=== PATIENT | female | born 1945 | race Caucasian/White ===

== ENCOUNTER → 2016-09-19 | Outpatient (CLI) | payer BC ==
[2016-09-19 17:37] LABS: BASO % 0.7 %; BASO ABS # 0.06 K/uL (0-0.2); COMPLETE YES; EOS % 3.6 %; HEMATOCRIT 40.7 % (37-47); IG% 0.1 %; LYMPH % 29.1 %; LYMPH ABS # 2.67 K/uL (1.2-3.4); MEAN CELL VOLUME 97.1 fL (80-100); MEAN CORPUSCULAR HEMOGLOBIN 32.5 pg (25-34); MEAN CORPUSCULAR HGB CONC 33.4 g/dl (32-36); MEAN PLATELET VOLUME 11.7 fL (7.4-10.4); MONO % 10.3 %; NEUT % 56.2 %; PLATELET COUNT 359 K/uL (130-400); RED BLOOD COUNT 4.19 M/uL (4.2-5.4); WHITE BLOOD COUNT 9.17 K/uL (4.8-10.8)
[2016-09-19 17:50] LABS: ALT/SGPT 28 U/L (12-78); AST/SGOT 23 U/L (15-37); BLOOD UREA NITROGEN 15 mg/dl (7-18); BUN/CREATININE RATIO 15.3 (10-20); CALCIUM 9.6 mg/dl (8.5-10.1); CARBON DIOXIDE 29 mmol/L (21-32); CHLORIDE 107 mmol/L (98-107); GLUCOSE 88 mg/dl (70-99); POTASSIUM 4.2 mmol/L (3.5-5.1); SODIUM 141 mmol/L (136-145)
[2016-09-19 18:01] LABS: ALB/GLOB RATIO 0.9 (0.9-2); ALKALINE PHOSPHATASE 61 U/L (45-117); CHOLESTEROL 189 mg/dl (0-200); CHOLESTEROL/HDL RATIO 2.7; HDL CHOLESTEROL 71 mg/dl; LDL CHOLESTEROL CALCULATED 89 mg/dl; TRIGLYCERIDES 147 mg/dl (0-150); VERY LOW DENSITY LIPOPROT CALC 29 mg/dl
[2016-09-20 07:24] LABS: ESTIMATED AVERAGE GLUCOSE 117 mg/dl; HA1C FLAG Normal (Normal)
--- NOTE | 2016-09-25 06:31 | CODING QUERY MEDICAL NECESSITY ---
CQSUPPORTING DIAGNOSIS NEEDED A supporting diagnosis is required for the test/procedure performed on this patient in order for us to be reimbursed by the patient's insurance. Please provide a supporting diagnosis for the following test/procedure listed below next to the test name along with your signature. *If there is no additional diagnosis for this patient that would support the following test/procedure please document that below next to the test/procedure. Test(s)/Procedure(s) that require a supporting diagnosis: DOS 09/19/16 COMPLETE BLOOD COUNT GLYCATED HEMOGLOBIN TEST THYROID TEST Provider Signature: Date: Thank you [facility] Once completed, please kindly fax back to [phone] For questions please call [phone]
== END | disposition home or self-care (01) ==
LOC: C.LABPBG 11:18
PROVIDERS: ATTEND Neuromusculoskeletal Medicine & OMM
DX: Z00.00 Encounter for general adult medical examination without abnormal findings (principal); R73.09 Other abnormal glucose; E78.5 Hyperlipidemia, unspecified; K21.9 Gastro-esophageal reflux disease without esophagitis

== ENCOUNTER → 2017-09-25 | Outpatient (CLI) | payer BC ==
[2017-09-25 16:59] LABS: HEMATOCRIT 35.6 % (37-47); HEMOGLOBIN 11.6 g/dL (12.0-16.0); MEAN CORPUSCULAR HEMOGLOBIN 31.3 pg (25-34); MEAN CORPUSCULAR HGB CONC 32.6 g/dl (32-36); MEAN PLATELET VOLUME 11.6 fL (7.4-10.4); PLATELET COUNT 285 K/uL (130-400); WHITE BLOOD COUNT 7.49 K/uL (4.8-10.8)
[2017-09-25 17:17] LABS: ALBUMIN 3.2 gm/dl (3.4-5.0); ALKALINE PHOSPHATASE 59 U/L (45-117); ALT/SGPT 21 U/L (12-78); AST/SGOT 24 U/L (15-37); BLOOD UREA NITROGEN 11 mg/dl (7-18); CARBON DIOXIDE 24 mmol/L (21-32); CHOLESTEROL 146 mg/dl (0-200); CREATININE 1.03 mg/dl (0.60-1.20); GLUCOSE 82 mg/dl (70-99); LDL CHOLESTEROL CALCULATED 60 mg/dl; SODIUM 141 mmol/L (136-145); TOTAL PROTEIN 6.8 gm/dl (6.4-8.2)
[2017-09-26 06:38] LABS: HEMOGLOBIN A1C 5.8 % (4.5-5.6)
== END | disposition home or self-care (01) ==
LOC: C.LABPBG 14:52
PROVIDERS: ATTEND Family Medicine
DX: E78.5 Hyperlipidemia, unspecified (principal); K21.9 Gastro-esophageal reflux disease without esophagitis; R73.09 Other abnormal glucose

== ENCOUNTER → 2017-10-06 | Outpatient (CLI) | payer BC ==
[2017-10-06 12:59] LABS: BASO % 1.4 %; BASO ABS # 0.11 K/uL (0-0.2); EOS % 3.1 %; EOS ABS # 0.24 K/uL (0-0.5); HEMOGLOBIN 13.9 g/dL (12.0-16.0); IG# 0.01 K/uL (0.00-0.02); LYMPH % 37.1 %; LYMPH ABS # 2.88 K/uL (1.2-3.4); MEAN CELL VOLUME 95.5 fL (80-100); MEAN CORPUSCULAR HEMOGLOBIN 31.6 pg (25-34); MEAN CORPUSCULAR HGB CONC 33.1 g/dl (32-36); MEAN PLATELET VOLUME 11.7 fL (7.4-10.4); MONO % 9.1 %; MONO ABS # 0.71 K/uL (0.11-0.59); NEUT % 49.2 %; NEUT ABS # 3.82 K/uL (1.4-6.5); PLATELET COUNT 369 K/uL (130-400); RED CELL DISTRIBUTION WIDTH CV 13.6 % (11.5-14.5); RED CELL DISTRIBUTION WIDTH SD 47.3 fL (36.4-46.3); RETIC COUNT % 1.5 % (0.5-2.0); WHITE BLOOD COUNT 7.77 K/uL (4.8-10.8)
== END | disposition home or self-care (01) ==
LOC: C.LABPBG 10:26
PROVIDERS: ATTEND Family Medicine
DX: D64.9 Anemia, unspecified (principal)

== ENCOUNTER 2022-09-30 10:40 | Inpatient (IN) ==
[2022-09-30] MEDS ORDERED: KETOROLAC TROMETHAMINE 15 MG/ML VIAL IV STA (12:21)
[2022-09-30] MEDS ORDERED: methylPREDNISolone 125 MG/2 ML VIAL IV STA (12:21)
[2022-09-30] MEDS ORDERED: ALBUT/IPRATROP 3MG/0.5MG NEB 3 ML VIAL NEB STA (12:21)
[2022-09-30 12:25] LABS: Basophils % (auto) 0.5 %; Eosinophils # (auto) 0.34 K/uL (0-0.50); Eosinophils % (auto) 1.8 %; Hemoglobin 9.2 g/dl (12.0-16.0); Immature Granulocytes # (auto) 0.08 K/uL (0.01-0.20); Immature Granulocytes % (auto) 0.4 %; Lymphocytes # (auto) 3.27 K/uL (1.2-3.4); Lymphocytes % (auto) 17.2 %; Mean Corpuscular Hemoglobin 27.6 pg (25.0-34.0); Mean Corpuscular Hgb Conc 31.7 g/dL (32.0-36.0); Mean Corpuscular Volume 87.1 fL (80.0-100.0); Neutrophils % (auto) 70.1 %; Platelet Count 472 K/uL (130-400); RDW Coefficient of Variation 14.5 % (11.5-14.5); RDW Standard Deviation 46.2 fL (36.4-46.3); Red Blood Count 3.33 M/uL (4.20-5.40); White Blood Count 18.99 K/ul (4.8-10.8)
[2022-09-30 12:49] LABS: Albumin Level 3.7 gm/dl (3.4-5.0); BUN Creatinine Ratio 14.7 (10-20); Bilirubin,Total 0.4 mg/dl (0.2-1.0); Calcium 8.8 mg/dl (8.6-10.3); Creatinine Clr Calc Pharmacy 45.7 ml/min; Est GFR (African American) 60.6 ml/min; Est GFR (Non-African American) 52.3 ml/min; Globulin 3.6 gm/dl (2.5-4.0); Potassium 4.5 mmol/L (3.5-5.1); Total Protein 7.3 gm/dl (6.0-8.3)
[2022-09-30 12:50] LABS: Base Excess VBG 0.3 mEq/L; HCO3 VBG 25 mmol/L; Oxygen Saturation VBG < 60.0 %; PCO2 VBG 42 mmHg (38-50); PO2 VBG 38 mmHg; pH VBG 7.39 (7.36-7.41)
[2022-09-30] MEDS ORDERED: OPTIRAY 320 100ml IV ONE (14:06)
--- NOTE | 2022-09-30 14:25 | CT Scan Report ---
ABDOMEN AND PELVIS CT WITH IV CONTRAST CT DOSE: 901.84 mGy.cm HISTORY: Acute left lower quadrant abdominal pain llq pain TECHNIQUE: Multiaxial CT images of the abdomen and pelvis were performed following the IV administrat ion of 93 cc of Optiray, A dose lowering technique was utilized adhering to the principles of ALARA. COMPARISON STUDY: 05/29/2021 FINDINGS: Moderate basilar plugging. Linear consolidative with bibasilar groundglass densities. No pn eumatosis or pneumoperitoneum. Unremarkable spleen, pancreas and adrenal glands. Liver is within norm al limits. Patency of the hepatic and portal veins. Distended gallbladder with cholelithiasis. No gal lbladder wall thickening or pericholecystic fluid. No biliary ductal dilation. Mild nonspecific bilateral perinephric stranding. No hydronephrosis. Mild urinary bladder wall thicke humza. Hysterectomy. Atherosclerosis of the aorta. No pathologically enlarged lymph nodes identified. Moderate-sized hiatal hernia. No small bowel junction. Colonic diverticulosis. Circumferential wall t hickening of the distal descending colon, descending sigmoid junction and proximal to mid sigmoid wit h adjacent inflammatory stranding. No inflamed diverticulum identified. Moderate fecal retention. The appendix is reportedly surgically absent. Unremarkable soft tissues. No acute fracture. Unchanged sc lerosis of the left iliac bone adjacent to the SI joint. IMPRESSION: 1. Wall thickening of the distal descending colon and proximal sigmoid with adjacent inflammatory str anding suggestive of a nonspecific colitis versus acute diverticulitis. Follow-up colonoscopy after t reatment course recommended to exclude the less likely possibility of an underlying mucosal lesion. 2. No pneumoperitoneum, fluid collection or obstruction. 3. Cholelithiasis. 4. Mild bibasilar opacities suggestive of atelectasis versus pneumonitis. 5. Hiatal hernia. ACT 112: Negative or not required by law. The above report was generated using voice recognition software. It may contain grammatical, syntax o r spelling errors. Electronically signed by: Chuy Awan M.D. 09/30/2022 2:24 PM
[2022-09-30] MEDS ORDERED: CIPROFLOXACIN / D5W 400 MG/200 ML BAG IV STA (14:37)
[2022-09-30] MEDS ORDERED: metroNIDAZOLE 500 MG/100 ML BAG IV STA (14:37)
--- NOTE | 2022-09-30 14:45 | Emergency Department Note ---
History of Present Illness General Chief Complaint: Referred by Doctor Stated Complaint: ABD PAIN, SOB, UNABLE TO PEE Time Seen by Provider: 09/30/22 12:13 History of Present Illness Provider Complaint: abdominal pain Onset (ago): 3 week(s) Pain Consistency: intermittent Location: LLQ Severity: moderate Maximum Pain Intensity: 6 Current Pain Intensity: 6 Quality: + stabbing and + sharp Relieved By: + nothing Exacerbated By: + nothing Context: + recent antibiotic use (Started on Augmentin yesterday for diverticulitis. 3 weeks ago was on Augmentin for diverticulitis also) and + history of similar episodes (Feels like previous episodes of diverticulitis as well as his previous small bowel obstructions); no foreign travel, no possible food poisoning, no sick contacts, no recent surgery/procedure or no recent injury Associated Symptoms: + nausea, + constipation and + breathing difficulty (Increased shortness of breath and wheezing); no vomiting, no fever, no chills, no dysuria, no hematemesis, no hematochezia, no melena and no hematuria Home Medications Medication Instructions Recorded Confirmed Type aspirin 81 mg tablet,delayed 81 mg PO DAILY #30 tabs 07/20/18 09/30/22 Rx release (Adult Low Dose Aspirin) fish oil-dha-epa 1,200 mg-144 1 cap PO DAILY #30 caps 07/20/18 09/30/22 Rx mg-216 mg capsule multivitamin 1 tab PO DAILY #30 tabs 07/20/18 09/30/22 Rx calcium carbonate 600 mg-vitamin 2 tab PO DAILY 07/20/20 09/30/22 History D3 1,000 unit-vitamin K2 90 mcg tab metoprolol succinate 50 mg 50 mg PO DAILY #90 tabs 04/03/22 09/30/22 Rx tablet,extended release 24 hr omeprazole 20 mg capsule,delayed 20 mg PO DAILY #90 caps 04/23/22 09/30/22 Rx release paroxetine HCl 40 mg tablet 40 mg PO DAILY #90 tabs 04/23/22 09/30/22 Rx alendronate 70 mg tablet (Fosamax) 70 mg PO .WEEKLY #12 tabs 04/25/22 09/30/22 Rx doxepin 25 mg capsule 50 mg PO HS #90 caps 07/15/22 09/30/22 Rx rosuvastatin 10 mg tablet 10 mg PO DAILY #90 tabs 07/23/22 09/30/22 Rx montelukast 10 mg tablet 10 mg PO DAILY #90 tabs 09/12/22 09/30/22 Rx ondansetron 4 mg disintegrating 4 mg PO Q6H PRN Nausea 09/19/22 09/30/22 History tablet albuterol sulfate 90 mcg/actuation 2 puff inhalation Q4H PRN 09/30/22 09/30/22 Rx aerosol inhaler shortness of breath or wheezing #8.5 grams amoxicillin 875 mg-potassium 1 tab PO BID 09/30/22 09/30/22 History clavulanate 125 mg tablet hydrocodone 5 mg-acetaminophen 325 1 tab PO Q8H PRN pain 09/30/22 09/30/22 History mg tablet umeclidinium 62.5 mcg-vilanterol 1 inh inhalation QAM 09/30/22 09/30/22 History 25 mcg/actuation powdr for inhalation (Anoro Ellipta) Allergies Allergy/AdvReac Type Severity Reaction Status Date / Time No Known Drug Allergies Allergy Verified 09/30/22 09:24 Past Med/Surg History Medical History Anemia Aortic stenosis COPD (chronic obstructive pulmonary disease) Depression with anxiety Frequent UTI GERD without esophagitis H/O Graves' disease H/O malignant neoplasm of uterine body H/O nicotine dependence H/O small bowel obstruction Hyperlipidemia Hypoxia Obstructive sleep apnea Prediabetes Sensorineural hearing loss of both ears Tinnitus, bilateral Intermittent Surgical History H/O cataract extraction (04/2019) both eyes H/O total hysterectomy secondary to uterine cancer History of appendectomy Hx of tonsillectomy S/P exploratory laparotomy (10/19/18) w/ cecopexy, [place] d/t 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 S/P exploratory laparotomy w/ [place] d/t recurrent SBO Family History Sister , Age 78 from heart disease Lung cancer Myocardial infarction Coronary heart disease COPD (chronic obstructive pulmonary disease) Mother , Stroke Stroke Father Stroke Brother Lung cancer Denies family history of Ovarian cancer Prostate cancer Breast cancer Colorectal cancer Social History Smoking Status: Never smoker Tobacco Type: Cigarettes Age Started Using Tobacco: 19; Age Quit Using Tobacco: 71; packs per day: 0.5; Second Hand Exposure: No; Do You Dip or Chew Tobacco: No; Hx Alcohol Use: No Hx Substance Use: No Preferred Language: [place] Visual Impairment: No Limitations Hearing Ability: Use of Hearing Aid Name Plate Stamper Required: No Beliefs That Will Affect Care: None marital status: Single Current Living Situation: Other Current Living Situation Comment: Niece lives with her. current occupational status: retired Feels Safe at Home: Yes Childhood Exposure to Second-Hand Smoke: No Diet: regular Diet Comment: regular caffeine: Yes during the past year weight has: remained stable Dental Care, Regularly: Yes Physical Activity Frequency: 3-4 Times per Week Seatbelt Use: always Sunscreen Use: No Physical Exam Vital Signs: Vital Signs - 24 hr 09/30/22 11:01 09/30/22 12:26 Temperature 36.8 C Temperature Source Oral Pulse Rate 94 H 86 Respiratory Rate 28 H Blood Pressure 123/60 Blood Pressure Indira n 81 Blood Pressure Pos ition Sitting Pulse Oximetry 93 Oxygen Delivery Me thod Room Air Sepsis Recent Feve r Within 48 Hours No Sepsis New/Unexpla ined Change in Men hal Status No Sepsis Action Take n by Nursing No Action Required Physical Exam: Physical Exam GENERAL: She is oriented to person, place, and time. She appears well-developed and well-nourished. She does not appear distressed. HENT: Exam performed. -Head: Normocephalic and atraumatic. -Right Ear: External ear normal. No mastoid erythema -Left Ear: External ear normal. No mastoid erythema -Mouth/Throat: The oropharynx is clear and moist. No trismus in the jaw. No dental abscesses or uvula swelling. No oropharyngeal exudate or tonsillar abscesses. EYES: Conjunctivae and EOM are normal.Right eye exhibits no discharge. Left eye exhibits no discharge. No scleral icterus. NECK: Normal range of motion. Neck supple. No JVD present. No tracheal deviation and normal range of motion present. CV: Normal rate, regular rhythm, normal heart sounds and intact distal pulses. There is no peripheral edema. Palpable radial pulses bue. PULM/CHEST: Expiratory wheezes bilaterally. -Chest Wall: She exhibits no tenderness. ABD: The abdomen is soft. Bowel sounds are normal. She has no distension. No mass is present. There is tenderness to palpation of the left lower quadrant. There is no rebound, no guarding, no Ryan's sign and no tenderness at McBurney's point. Rovsig negative MUSC/SKEL: Normal range of motion. There is no peripheral edema, tenderness or deformity. NEURO: Motor and sensation grossly intact. SKIN: Skin is warm and dry. She is not diaphoretic. PSYCH: She has a normal mood and affect. Behavior is normal. Judgment and thought content normal. Course Course 1213: The patient was evaluated in room A12. A complete history and physical exam was performed Cardiac monitoring: An order was placed for continuous cardiac monitoring. The monitor shows a rate of 80 with sinus rhythm interpreted by de 1444: Vital signs stable. Labs show leukocytosis of 18.99. Lactic acid within normal limits. CT of the abdomen pelvis shows colitis versus diverticulitis no bowel obstruction. Given the patient has failed outpatient antibiotics over the last 3 weeks patient will be treated with IV Cipro and Flagyl [facility] team [facility]. Administered Medications Discontinued Medications Albuterol (Albut/Ipratrop 3mg/0.5mg Neb 3 Ml Vial) 3 ml NEB NOW STA; Protocol Stop: 09/30/22 12:22 Last Admin: 09/30/22 12:35 Dose: 3 ml Documented By: GWENDOLYN Ciprofloxacin (Cipro / D5w) 400 mg in 200 mls @ 100 mls/hr IV NOW STA; Protocol Stop: 09/30/22 16:36 Last Admin: 09/30/22 15:23 Dose: 100 mls/hr Documented By: GWENDOLYN Metronidazole (Flagyl) 500 mg in 100 mls @ 100 mls/hr IV NOW STA Stop: 09/30/22 15:36 Last Admin: 09/30/22 15:24 Dose: 100 mls/hr Documented By: GWENDOLYN Pantoprazole Sodium 40 mg/ (Syringe) 10 mls @ 5 mls/min IV NOW ONE Stop: 09/30/22 15:31 Last Admin: 09/30/22 16:45 Dose: 5 mls/min Documented By: ACC Lactated Ringer's (Lr) 500 mls @ 999 mls/hr IV .Q31M ONE Stop: 09/30/22 16:34 Last Admin: 09/30/22 16:45 Dose: 999 mls/hr Documented By: BESSIE Ioversol (Optiray 320 100ml) 93 ml IV ONCE ONE Stop: 09/30/22 14:07 Last Admin: 09/30/22 14:06 Dose: 93 ml Documented By: GATO Ketorolac Tromethamine (Ketorolac Tromethamine 15 Mg/Ml Vial) 15 mg IV NOW STA Stop: 09/30/22 12:22 Last Admin: 09/30/22 12:35 Dose: 15 mg Documented By: GWENDOLYN Methylprednisolone (Methylprednisolone 125 Mg/2 Ml Vial) 125 mg IV NOW STA Stop: 09/30/22 12:22 Last Admin: 09/30/22 12:35 Dose: 125 mg Documented By: GWENDOLYN Medical Decision Making Laboratory Data Attestation: I reviewed the patient's lab results. 09/30/22 12:00 09/30/22 12:00 Lab Results 09/30/22 09/30/22 09/30/22 Range/Units 12:00 12:00 12:43 WBC 18.99 H (4.8-10.8) K/ul RBC 3.33 L (4.20-5.40) M/uL Hgb 9.2 L (12.0-16.0) g/dl Hct 29.0 L (37.0-47.0) % MCV 87.1 (80.0-100.0) fL MCH 27.6 (25.0-34.0) pg MCHC 31.7 L (32.0-36.0) g/dL RDW Std Deviation 46.2 (36.4-46.3) fL RDW Coeff of Humza 14.5 (11.5-14.5) % Plt Count 472 H (130-400) K/uL MPV 11.0 (9.4-12.4) fL Immature Gran % (Auto) 0.4 % Neut % (Auto) 70.1 % Lymph % (Auto) 17.2 % [place] % (Auto) 10.0 % Eos % (Auto) 1.8 % Baso % (Auto) 0.5 % Neut # (Auto) 13.30 H (1.40-6.50) K/uL Lymph # (Auto) 3.27 (1.2-3.4) K/uL [place] # (Auto) 1.90 H (0.11-0.59) K/uL Eos # (Auto) 0.34 (0-0.50) K/uL Baso # (Auto) 0.10 (0-0.2) K/uL Immature Gran # (Auto) 0.08 (0.01-0.20) K/uL VBG pH (7.36-7.41) VBG pCO2 (38-50) mmHg VBG pO2 mmHg VBG HCO3 mmol/L VBG O2 Saturation % VBG Base Excess mEq/L Sodium 135 L (136-145) mmol/L Potassium 4.5 (3.5-5.1) mmol/L Chloride 104 (98-107) mmol/L Carbon Dioxide 25 (21-32) mmol/L Anion Gap 6 (3-11) BUN 15 (6-23) mg/dl Creatinine 1.02 (0.6-1.2) mg/dl Est Cr Clr Drug Dosing 45.7 ml/min Est GFR ( Amer) 60.6 ml/min Est GFR (Non-Af Amer) 52.3 ml/min BUN/Creatinine Ratio 14.7 (10-20) Glucose 94 (70-99(Fasting)) mg/dl Lactate 0.8 (0.4-2.0) mmol/L Calcium 8.8 (8.6-10.3) mg/dl Total Bilirubin 0.4 (0.2-1.0) mg/dl AST 17 (13-39) U/L ALT 8 (7-52) U/L Alkaline Phosphatase 71 (34-104) U/L Total Protein 7.3 (6.0-8.3) gm/dl Albumin 3.7 (3.4-5.0) gm/dl Globulin 3.6 (2.5-4.0) gm/dl Albumin/Globulin Ratio 1.0 (0.9-2) Lipase 9 L (11-82) U/L Urine Color Urine Appearance (Clear) Urine pH (4.5-7.5) Ur Specific [place] (1.000-1.030) Urine Protein (Negative) Urine Glucose (UA) (Negative) Urine Ketones (Negative) Urine Blood (Negative) Urine Nitrite (Negative) Urine Bilirubin (Negative) Urine Urobilinogen (Negative) Ur Leukocyte Esterase (Negative) Urine WBC (Auto) (0-5) /hpf Urine RBC (Auto) (0-4) /hpf U Hyaline Cast (Auto) (0-5) /lpf U Epithel Cells (Auto) (0-5) /lpf Urine Bacteria (Auto) (Negative) 09/30/22 09/30/22 Range/Units 12:44 14:21 WBC (4.8-10.8) K/ul RBC (4.20-5.40) M/uL Hgb (12.0-16.0) g/dl Hct (37.0-47.0) % MCV (80.0-100.0) fL MCH (25.0-34.0) pg MCHC (32.0-36.0) g/dL RDW Std Deviation (36.4-46.3) fL RDW Coeff of Humza (11.5-14.5) % Plt Count (130-400) K/uL MPV (9.4-12.4) fL Immature Gran % (Auto) % Neut % (Auto) % Lymph % (Auto) % [place] % (Auto) % Eos % (Auto) % Baso % (Auto) % Neut # (Auto) (1.40-6.50) K/uL Lymph # (Auto) (1.2-3.4) K/uL [place] # (Auto) (0.11-0.59) K/uL Eos # (Auto) (0-0.50) K/uL Baso # (Auto) (0-0.2) K/uL Immature Gran # (Auto) (0.01-0.20) K/uL VBG pH 7.39 (7.36-7.41) VBG pCO2 42 (38-50) mmHg VBG pO2 38 mmHg VBG HCO3 25 mmol/L VBG O2 Saturation < 60.0 % VBG Base Excess 0.3 mEq/L Sodium (136-145) mmol/L Potassium (3.5-5.1) mmol/L Chloride (98-107) mmol/L Carbon Dioxide (21-32) mmol/L Anion Gap (3-11) BUN (6-23) mg/dl Creatinine (0.6-1.2) mg/dl Est Cr Clr Drug Dosing ml/min Est GFR ( Amer) ml/min Est GFR (Non-Af Amer) ml/min BUN/Creatinine Ratio (10-20) Glucose (70-99(Fasting)) mg/dl Lactate (0.4-2.0) mmol/L Calcium (8.6-10.3) mg/dl Total Bilirubin (0.2-1.0) mg/dl AST (13-39) U/L ALT (7-52) U/L Alkaline Phosphatase (34-104) U/L Total Protein (6.0-8.3) gm/dl Albumin (3.4-5.0) gm/dl Globulin (2.5-4.0) gm/dl Albumin/Globulin Ratio (0.9-2) Lipase (11-82) U/L Urine Color Dark Yellow Urine Appearance Clear (Clear) Urine pH 5.0 (4.5-7.5) Ur Specific [place] > 1.045 H (1.000-1.030) Urine Protein 1+ H (Negative) Urine Glucose (UA) Negative (Negative) Urine Ketones Trace H (Negative) Urine Blood Negative (Negative) Urine Nitrite Negative (Negative) Urine Bilirubin Negative (Negative) Urine Urobilinogen Negative (Negative) Ur Leukocyte Esterase Trace H (Negative) Urine WBC (Auto) 5-10 H (0-5) /hpf Urine RBC (Auto) 0-4 (0-4) /hpf U Hyaline Cast (Auto) 1-5 (0-5) /lpf U Epithel Cells (Auto) >30 H (0-5) /lpf Urine Bacteria (Auto) Negative (Negative) Imaging Data Radiologist's Impression: Abdomen/Pelvis CT 09/30/22 12:[address] WITH IV CONTRAST CT DOSE: 901.84 mGy.cm HISTORY: Acute left lower quadrant abdominal pain llq pain TECHNIQUE: Multiaxial CT images of the abdomen and pelvis were performed following the IV administration of 93 cc of Optiray, A dose lowering technique was utilized adhering to the principles of ALARA. COMPARISON STUDY: 05/29/2021 FINDINGS: Moderate basilar plugging. Linear consolidative with bibasilar groundglass densities. No pneumatosis or pneumoperitoneum. Unremarkable spleen, pancreas and adrenal glands. Liver is within normal limits. Patency of the hepatic and portal veins. Distended gallbladder with cholelithiasis. No gallbladder wall thickening or pericholecystic fluid. No biliary ductal dilation. Mild nonspecific bilateral perinephric stranding. No hydronephrosis. Mild urinary bladder wall thickening. Hysterectomy. Atherosclerosis of the aorta. No pathologically enlarged lymph nodes identified. Moderate-sized hiatal hernia. No small bowel junction. Colonic diverticulosis. Circumferential wall thickening of the distal descending colon, descending sigmoid junction and proximal to mid sigmoid with adjacent inflammatory stranding. No inflamed diverticulum identified. Moderate fecal retention. The appendix is reportedly surgically absent. Unremarkable soft tissues. No acute fracture. Unchanged sclerosis of the left iliac bone adjacent to the SI joint. IMPRESSION: 1. Wall thickening of the distal descending colon and proximal sigmoid with adjacent inflammatory stranding suggestive of a nonspecific colitis versus acute diverticulitis. Follow-up colonoscopy after treatment course recommended to exclude the less likely possibility of an underlying mucosal lesion. 2. No pneumoperitoneum, fluid collection or obstruction. 3. Cholelithiasis. 4. Mild bibasilar opacities suggestive of atelectasis versus pneumonitis. 5. Hiatal hernia. ACT 112: Negative or not required by law. The above report was generated using voice recognition software. It may contain grammatical, syntax or spelling errors. Electronically signed by: Chuy Awan M.D. 09/30/2022 2:24 PM [facility] Narrative 1213: The patient was evaluated in room A12. A complete history and physical exam was performed Cardiac monitoring: An order was placed for continuous cardiac monitoring. The monitor shows a rate of 80 with sinus rhythm interpreted by de 1444: Vital signs stable. Labs show leukocytosis of 18.99. Lactic acid within normal limits. CT of the abdomen pelvis shows colitis versus diverticulitis no bowel obstruction. Given the patient has failed outpatient antibiotics over the last 3 weeks patient will be treated with IV Cipro and Flagyl [facility] team notified. Impression & Plan Diverticulitis Discharge Plan Visit Data Chief Complaint: Referred by Doctor Stated Complaint: ABD PAIN, SOB, UNABLE TO PEE ED Provider: Miquel Parnell Discharge Problem: Diverticulitis Patient Disposition: Admitted As Inpatient
--- NOTE | 2022-09-30 15:08 | History & Physical Report ---
Date of Service September 30, 2022 Assessment & Plan (1) Diverticulitis: Plan: Ciprofloxacin + metronidazole given in ER, will switch to Zosyn for better pseudomonas coverage but suspect failure more down to diet than problem with antibiotics NPO + IV fluids (probable severe aortic stenosis and already compromised respiratory status therefore low tolerance to slow IV fluids or stop) Follow up blood cultures although she does not appear septic despite technically meeting SIRS criteria with her HR and WBC. Will need follow up colonoscopy as outpatient in 4-6 weeks (2) Acute respiratory failure with hypoxia: Plan: Baseline on room air although she has oxygen prescribed at home she reports usually O2 sats 91-93% Required oxygen since current diagnosis of diverticulitis Treat as COPD exacerbation as below Aim O2 sats 88-92% (3) COPD exacerbation: Plan: Increased sputum production and shortness of breath Solu-medrol 125mg IV given in the ER. Will initially trial without further steroids as the diverticulitis is her main issue and hopefully she will improve just with Spiriva INH, budesonide/formoterol nebs BID and duonebs QID. If worsening respiratory status consider heart failure as possible cause in addition Azithromycin 500mg IV for three days Sputum culture (4) Aortic stenosis: Plan: Not well visualized on last echo in July. At least moderate, probably severe. Possibly contributing towards shortness of breath chronically but doubtful acute component in absence of over heart failure. Monitor for closely for worsening respiratory status while on IV fluids. (5) Obstructive sleep apnea: Plan: CPAP HS (pt reports settings of 4-12cm H20) (6) GERD without esophagitis: Plan: Switch omeprazole to pantoprazole 40mg IV daily (7) Depression with anxiety: Plan: Continue paroxetine and doxepin Plan VTE Prophylaxis - Lovenox 40mg SQ daily Diet - NPO except meds Disposition - observation status to med/surg Admission and Anticipated Discharge Date Admission Date: September 30, 2022 History of Present Illness Chief Complaint: Abdominal pain, shortness of breath Primary Care Provider: DO Najma Rosales is a 77 year old female who presents to the ER with abdominal pain. She notes no history of diverticulitis prior to recent events however she does have a significant history of bowel obstructions. 1 week ago she was having left lower quadrant pain and went to [place] ER. She was diagnosed with acute diverticulitis and started on Augmentin 500/125 for 10 days on September 19. She was advised to go down to a soft diet but report she was never really eating that much as she didn't feel like it. No diarrhea, melena or hematochezia. The pain started getting worse yesterday therefore returned to [place] ER and Augmentin was increased to 875/125 for a further 7 days. She followed up with her PCP today and given more short of breath with abdominal pain not improving she was recommended to come to the ER for further evaluation. She also notes not passing much urine but no other urinary complaints and she puts this down to her reduced oral intake. Her shortness of breath has been over the same period. She has COPD and is prescribed oxygen at home but reports her usual O2 sats 91-93% on room air so she doesn't normally use it. However for the last week with the above illness she has been using her 2LPM O2. She has been compliant with her usual inhalers. Quit smoking 7 years ago. No chest pain. She wears CPAP at night for LESLI. Allergies Allergy/AdvReac Type Severity Reaction Status Date / Time No Known Drug Allergies Allergy Verified 09/30/22 09:24 Home Medications Medication Instructions Recorded Confirmed Type aspirin 81 mg tablet,delayed 81 mg PO DAILY #30 tabs 07/20/18 09/30/22 Rx release (Adult Low Dose Aspirin) fish oil-dha-epa 1,200 mg-144 1 cap PO DAILY #30 caps 07/20/18 09/30/22 Rx mg-216 mg capsule multivitamin 1 tab PO DAILY #30 tabs 07/20/18 09/30/22 Rx calcium carbonate 600 mg-vitamin 2 tab PO DAILY 07/20/20 09/30/22 History D3 1,000 unit-vitamin K2 90 mcg tab metoprolol succinate 50 mg 50 mg PO DAILY #90 tabs 04/03/22 09/30/22 Rx tablet,extended release 24 hr omeprazole 20 mg capsule,delayed 20 mg PO DAILY #90 caps 04/23/22 09/30/22 Rx release paroxetine HCl 40 mg tablet 40 mg PO DAILY #90 tabs 04/23/22 09/30/22 Rx alendronate 70 mg tablet (Fosamax) 70 mg PO .WEEKLY #12 tabs 04/25/22 09/30/22 Rx doxepin 25 mg capsule 50 mg PO HS #90 caps 07/15/22 09/30/22 Rx rosuvastatin 10 mg tablet 10 mg PO DAILY #90 tabs 07/23/22 09/30/22 Rx montelukast 10 mg tablet 10 mg PO DAILY #90 tabs 09/12/22 09/30/22 Rx ondansetron 4 mg disintegrating 4 mg PO Q6H PRN Nausea 09/19/22 09/30/22 History tablet albuterol sulfate 90 mcg/actuation 2 puff inhalation Q4H PRN 09/30/22 09/30/22 Rx aerosol inhaler shortness of breath or wheezing #8.5 grams amoxicillin 875 mg-potassium 1 tab PO BID 09/30/22 09/30/22 History clavulanate 125 mg tablet hydrocodone 5 mg-acetaminophen 325 1 tab PO Q8H PRN pain 09/30/22 09/30/22 History mg tablet umeclidinium 62.5 mcg-vilanterol 1 inh inhalation QAM 09/30/22 09/30/22 History 25 mcg/actuation powdr for inhalation (Anoro Ellipta) Past Med/Surg History Medical History Anemia Aortic stenosis COPD (chronic obstructive pulmonary disease) Depression with anxiety Frequent UTI GERD without esophagitis H/O Graves' disease H/O malignant neoplasm of uterine body H/O nicotine dependence H/O small bowel obstruction Hyperlipidemia Hypoxia Obstructive sleep apnea Prediabetes Sensorineural hearing loss of both ears Tinnitus, bilateral Intermittent Surgical History H/O cataract extraction (04/2019) both eyes H/O total hysterectomy secondary to uterine cancer History of appendectomy Hx of tonsillectomy S/P exploratory laparotomy (10/19/18) w/ cecopexy, [place] d/t 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 S/P exploratory laparotomy w/ [place] d/t recurrent SBO Family History Sister , Age 78 from heart disease Lung cancer Myocardial infarction Coronary heart disease COPD (chronic obstructive pulmonary disease) Mother , Stroke Stroke Father Stroke Brother Lung cancer Denies family history of Ovarian cancer Prostate cancer Breast cancer Colorectal cancer Social History Smoking Status: Former smoker Tobacco Type: Cigarettes Age Started Using Tobacco: 19; Age Quit Using Tobacco: 71; packs per day: 0.5; Second Hand Exposure: No; Do You Dip or Chew Tobacco: No; Hx Alcohol Use: No Hx Substance Use: No Preferred Language: Yi Communication Ability: Effective Visual Impairment: No Limitations Hearing Ability: Use of Hearing Aid Coding Manager Required: No Beliefs That Will Affect Care: None marital status: Single Current Living Situation: Family Current Living Situation Comment: lies in own home, niece lives with her, 1st floor setup current occupational status: retired Other Information That Helps Us Care for You: No Feels Safe at Home: Yes Safety Concerns: Feels Safe At This Time Childhood Exposure to Second-Hand Smoke: No Diet: regular Diet Comment: regular caffeine: Yes during the past year weight has: remained stable Dental Care, Regularly: Yes Physical Activity Frequency: 3-4 Times per Week Seatbelt Use: always Sunscreen Use: No Assistive Devices: CPAP and Oxygen - Continuous Review of Systems Review of Systems: All systems reviewed & are unremarkable except as noted in HPI & below Physical Exam Constitutional: WD/WN, vitals as above Eyes: PERRL, conjunctivae normal, anicteric sclerae ENMT: external ear and nose normal, oropharynx normal Respiratory: + respiratory distress, + labored breathing, + uses accessory muscles and + prolonged expiratory phase Auscultation: + crackles (bibasal) and + wheezes (mild expiratory); breath sounds present, no diminished lung sounds, no rales and no rhonchi Cardiovascular: RRR, no murmur, no edema Gastrointestinal (Abdomen): Inspection/Auscultation: abdomen normal to inspection; abdomen not distended Percussion/Palpation: + abdomen tender (LLQ), + guarding and abdomen soft; abdomen not rigid Musculoskeletal: no cyanosis or clubbing, extremities motor strength 5/5 Skin: no rashes, warm and dry Neurologic: moves all extremities and awake; not confused Psychiatric: A+Ox3, euthymic affect Genitourinary: no CVA tenderness Results & Data Results & Data Vital Signs (Past 12 Hours) Vital Signs Temp Pulse Resp BP Pulse Ox O2 Del Method 09/30/22 12:26 86 09/30/22 11:01 36.8 C 94 H 28 H 123/60 93 Room Air Laboratory Results Abnormal lab results 09/30/22 09/30/22 Range/Units 12:00 12:00 WBC 18.99 H (4.8-10.8) K/ul RBC 3.33 L (4.20-5.40) M/uL Hgb 9.2 L (12.0-16.0) g/dl Hct 29.0 L (37.0-47.0) % MCHC 31.7 L (32.0-36.0) g/dL Plt Count 472 H (130-400) K/uL Neut # (Auto) 13.30 H (1.40-6.50) K/uL Morrison # (Auto) 1.90 H (0.11-0.59) K/uL Sodium 135 L (136-145) mmol/L Lipase 9 L (11-82) U/L Diagnostic Findings ABDOMEN AND PELVIS CT WITH IV CONTRAST CT DOSE: 901.84 mGy.cm HISTORY: Acute left lower quadrant abdominal pain llq pain TECHNIQUE: Multiaxial CT images of the abdomen and pelvis were performed following the IV administration of 93 cc of Optiray, A dose lowering technique was utilized adhering to the principles of ALARA. COMPARISON STUDY: 05/29/2021 FINDINGS: Moderate basilar plugging. Linear consolidative with bibasilar groundglass densities. No pneumatosis or pneumoperitoneum. Unremarkable spleen, pancreas and adrenal glands. Liver is within normal limits. Patency of the hepatic and portal veins. Distended gallbladder with cholelithiasis. No gallbladder wall thickening or pericholecystic fluid. No biliary ductal dilation. Mild nonspecific bilateral perinephric stranding. No hydronephrosis. Mild urinary bladder wall thickening. Hysterectomy. Atherosclerosis of the aorta. No pathologically enlarged lymph nodes identified. Moderate-sized hiatal hernia. No small bowel junction. Colonic diverticulosis. Circumferential wall thickening of the distal descending colon, descending sigmoid junction and proximal to mid sigmoid with adjacent inflammatory stranding. No inflamed diverticulum identified. Moderate fecal retention. The appendix is reportedly surgically absent. Unremarkable soft tissues. No acute fracture. Unchanged sclerosis of the left iliac bone adjacent to the SI joint. IMPRESSION: 1. Wall thickening of the distal descending colon and proximal sigmoid with adjacent inflammatory stranding suggestive of a nonspecific colitis versus acute diverticulitis. Follow-up colonoscopy after treatment course recommended to exclude the less likely possibility of an underlying mucosal lesion. 2. No pneumoperitoneum, fluid collection or obstruction. 3. Cholelithiasis. 4. Mild bibasilar opacities suggestive of atelectasis versus pneumonitis. 5. Hiatal hernia. Medications Administered ER Medications Given: Ciprofloxacin 400mg IV Metronidazole 500mg IV Solu-medrol 125mg IV Duoneb 3ml Toradol 15mg IV ECG Rate (beats per minute): 83 Rhythm: normal sinus Findings: no acute ischemic change Comparison ECG Date: no prior available Code Status & VTE Plan Code Status DNR/DNI VTE Prophylaxis Plan VTE Prophylaxis will be ordered: Yes PG Care Time/CCT Total # of Minutes Spent Total Time Spent with Patient: Total time spent is greater than 50% in coordination of care (as documented) at patient's floor/unit and/or counseling patient: Coding Level of Care Code 22779 INT INP/OBS CARE 3/75MIN Diagnoses Diverticulitis K57.92 Acute respiratory failure with hypoxia J96.01 COPD exacerbation J44.1 Aortic stenosis I35.0 Obstructive sleep apnea G47.33 GERD without esophagitis K21.9 Depression with anxiety F41.8
[2022-09-30 15:14] LABS: Appearance Urine Clear (Clear); Bacteria Urine Automated Negative (Negative); Bilirubin Urine Negative (Negative); Blood Urine Negative (Negative); Color Urine Dark Yellow; Epithelial Cell Urine Auto >30 /lpf (0-5); Glucose Urine UA Negative (Negative); Ketones Urine Trace (Negative); Leukocyte Esterase Urine Trace (Negative); Nitrite Urine Negative (Negative); Protein Urine 1+ (Negative); RBC Urine Automated 0-4 /hpf (0-4); Specific Gravity Urine > 1.045 (1.000-1.030); Urobilinogen Urine Negative (Negative)
[2022-09-30] MEDS ORDERED: PANTOprazole 40 MG in SYRINGE 0 ML IV ONE (15:30)
--- NOTE | 2022-09-30 16:01 | XRay Report ---
SINGLE VIEW CHEST CLINICAL HISTORY: Dyspnea. FINDINGS: An AP, portable, semierect chest radiograph is compared to study dated 02/06/2019 and corre lated with chest CT dated 07/23/2019. The examination is degraded by portable technique and apical toña dotic positioning. The cardiomediastinal silhouette is unremarkable noting atherosclerotic calcificat ion of the thoracic aorta. Emphysema and chronic interstitial thickening is similar to previous. Ther e is bibasilar scarring/atelectasis. No airspace consolidation or large pleural effusion is identifie d. No pneumothorax is seen. The skeletal structures are osteopenic. The bony thorax is grossly intact . IMPRESSION: Emphysematous change with no acute cardiopulmonary abnormality. ACT 112: Negative or not required by law. Electronically signed by: Amarjit Mrash M.D. 09/30/2022 3:59 PM
[2022-09-30] MEDS ORDERED: LACTATED RINGER'S 500 ML IV ONE (16:04)
[2022-09-30] MEDS ORDERED: ACETAMINOPHEN 1,000 MG/100 ML VIAL IV PRN (18:33)
[2022-09-30] MEDS ORDERED: MoRPHine SULFATE 4 MG/ML 1 ML CARP\\VIAL IV PRN (18:33)
[2022-09-30] MEDS ORDERED: ALBUT/IPRATROP 3MG/0.5MG NEB 3 ML VIAL NEB SCH (19:00)
[2022-09-30] MEDS ORDERED: PIPERACILLIN/TAZOBACTAM 4.5 GM in DEXTROSE 5% 100 ML IV ONE (19:15)
[2022-09-30] MEDS: LACTATED RINGER'S 1,000 ML IV SCH (19:25)
[2022-09-30] MEDS: FORMOTEROL 20 MCG/2 ML VIAL NEB SCH (19:41)
[2022-09-30] MEDS: BUDESONIDE 0.5 MG/2 ML VIAL (PULMICORT) NEB SCH (20:27)
[2022-09-30] MEDS: ENOXAPARIN INJ 40 MG/0.4 ML SYR SQ SCH (21:14)
[2022-09-30] MEDS: DOXEPIN HCL 50 MG CAPSULE PO SCH (21:14)
[2022-09-30] MEDS: AZITHROMYCIN 500 MG in DEXTROSE 5% 250 ML IV SCH (21:51)
[2022-09-30] MEDS: UMECLIDINIUM BROMIDE 62.5MCG/BLISTER 7 PUFFS/INHALER INH SCH (22:25)
[2022-09-30] MEDS: MoRPHine SULFATE 2 MG/ML CARP IV PRN (22:25)
[2022-10-01] MEDS: PIPERACILLIN/TAZOBACTAM 4.5 GM in DEXTROSE 5% 100 ML IV SCH ×3 (01:36→18:19)
[2022-10-01] MEDS: LACTATED RINGER'S 1,000 ML IV SCH ×2 (03:50→14:19)
--- NOTE | 2022-10-01 06:05 | Electrocardiogram Report ---
Test Reason : Blood Pressure : / mmHG Vent. Rate : 083 BPM Atrial Rate : 083 BPM P-R Int : 154 ms QRS Dur : 076 ms QT Int : 370 ms P-R-T Axes : 066 045 042 degrees QTc Int : 434 ms Normal sinus rhythm Normal ECG No previous ECGs available Confirmed by Toney Lee ([id number]) on 10/01/2022 6:04:38 AM Referred By: Britney Veloz Confirmed By:Toney Lee
[2022-10-01] MEDS: FORMOTEROL 20 MCG/2 ML VIAL NEB SCH ×2 (07:24→19:42)
[2022-10-01] MEDS: ALBUT/IPRATROP 3MG/0.5MG NEB 3 ML VIAL NEB SCH ×5 (07:24→19:46)
[2022-10-01] MEDS: BUDESONIDE 0.5 MG/2 ML VIAL (PULMICORT) NEB SCH ×3 (07:24→19:46)
[2022-10-01 07:55] LABS: Albumin Level 3.2 gm/dl (3.4-5.0); BUN Creatinine Ratio 15.4 (10-20); Bilirubin,Total 0.3 mg/dl (0.2-1.0); Calcium 8.3 mg/dl (8.6-10.3); Creatinine Clr Calc Pharmacy 37.4 ml/min; Est GFR (African American) 59.2 ml/min; Est GFR (Non-African American) 51.1 ml/min; Globulin 3.2 gm/dl (2.5-4.0); Potassium 4.2 mmol/L (3.5-5.1); Total Protein 6.4 gm/dl (6.0-8.3)
[2022-10-01 08:08] LABS: Basophils # (auto) 0.02 K/uL (0-0.2); Basophils % (auto) 0.1 %; Hematocrit (blood only) 25.3 % (37.0-47.0); Hemoglobin 8.1 g/dl (12.0-16.0); Immature Granulocytes # (auto) 0.13 K/uL (0.01-0.20); Immature Granulocytes % (auto) 0.6 %; Lymphocytes # (auto) 2.15 K/uL (1.2-3.4); Lymphocytes % (auto) 10.5 %; Mean Corpuscular Volume 87.5 fL (80.0-100.0); Mean Platelet Volume 11.8 fL (9.4-12.4); Monocytes # (auto) 0.68 K/uL (0.11-0.59); Monocytes % (auto) 3.3 %; Neutrophils # (auto) 17.49 K/uL (1.40-6.50); Neutrophils % (auto) 85.5 %; Ovalocytes 1+; Platelet Count 383 K/uL (130-400); Platelet Estimate Normal (Normal); Polychromasia 1+; RDW Coefficient of Variation 14.3 % (11.5-14.5); RDW Standard Deviation 45.5 fL (36.4-46.3); Red Blood Count 2.89 M/uL (4.20-5.40); White Blood Count 20.47 K/ul (4.8-10.8)
[2022-10-01 08:14] LABS: Ferritin 64.3 ng/ml (8-388)
[2022-10-01] MEDS: ASPIRIN 81 MG ECTAB PO SCH (08:25)
[2022-10-01] MEDS: METOPROLOL SUCC 50MG EXT REL TAB PO SCH (08:25)
[2022-10-01] MEDS: MONTELUKAST SODIUM 10 MG TABLET PO SCH (08:25)
[2022-10-01] MEDS: UMECLIDINIUM BROMIDE 62.5MCG/BLISTER 7 PUFFS/INHALER INH SCH (08:26)
[2022-10-01] MEDS: PARoxetine HCL 20 MG TAB PO SCH (08:26)
[2022-10-01] MEDS ORDERED: ROSUVASTATIN CALCIUM 10 MG TAB PO SCH (09:00)
[2022-10-01] MEDS: PANTOprazole 40 MG in SYRINGE 0 ML IV SCH (10:03)
--- NOTE | 2022-10-01 18:06 | Hospitalist Progress Note ---
Date of Service October 01, 2022 Assessment & Plan (1) Diverticulitis: Plan: On Zosyn for better pseudomonas coverage but suspect failure more down to diet than problem with antibiotics NPO + IV fluids (probable severe aortic stenosis and already compromised respiratory status therefore low tolerance to slow IV fluids or stop). Will lower IV fluid rate to 75 mils an hour Follow up blood cultures although she does not appear septic despite technically meeting SIRS criteria with her HR and WBC. Will need follow up colonoscopy as outpatient in 4-6 weeks (2) Acute respiratory failure with hypoxia: Plan: Baseline on room air although she has oxygen prescribed at home she reports usually O2 sats 91-93% Required oxygen since current diagnosis of diverticulitis Treat as COPD exacerbation as below Aim O2 sats 88-92% (3) COPD exacerbation: Plan: Increased sputum production and shortness of breath Solu-medrol 125mg IV given in the ER. Will initially trial without further steroids as the diverticulitis is her main issue and hopefully she will improve just with Spiriva INH, budesonide/formoterol nebs BID and duonebs QID. Already better today. If worsening respiratory status consider heart failure as possible cause in addition Azithromycin 500mg IV for three days Sputum culture (4) Aortic stenosis: Plan: Not well visualized on last echo in July. At least moderate, probably severe. Possibly contributing towards shortness of breath chronically but doubtful acute component in absence of over heart failure. Monitor for closely for worsening respiratory status while on IV fluids. Caution with IV fluid Lower the rate of IV fluid (5) Obstructive sleep apnea: Plan: CPAP HS (pt reports settings of 4-12cm H20) (6) GERD without esophagitis: Plan: Switch omeprazole to pantoprazole 40mg IV daily (7) Depression with anxiety: Plan: Continue paroxetine and doxepin Plan VTE Prophylaxis - Lovenox 40mg SQ daily Diet - NPO except meds Disposition - observation status to med/surg Admission and Anticipated Discharge Date Admission Date: September 30, 2022 Subjective Patient feels better overall. Abdominal pain is improving. She still is not ready to start taking p.o. Shortness of breath is improved as well. Review of Systems Review of Systems: All systems reviewed & are unremarkable except as noted in Subjective Physical Exam Physical Exam: General: Awake, conversant Heart: S1, S2/regular rate and rhythm, no murmur rubs or gallops Lungs: Clear to auscultation bilaterally. Normal effort Abdomen: Soft/nondistended. Mild tenderness to palpation in the left lower quadrant with no rebound, rigidity or guarding. No hepatosplenomegaly Extremities: No clubbing/cyanosis. No edema Behavior: Appropriate, cooperative Results & Data Results & Data Vital Signs (Past 12 Hours) Vital Signs Temp Pulse Resp BP Pulse Ox O2 Del Method O2 Flow Rate 10/01/22 16:03 36.8 C 78 16 126/71 93 Nasal Cannula 2 10/01/22 14:31 84 18 98 Nasal Cannula 2 10/01/22 11:15 92 H 18 92 Nasal Cannula 2 10/01/22 10:20 Nasal Cannula 2 10/01/22 08:08 36.6 C 99 H 16 138/64 94 Nasal Cannula 2 10/01/22 07:26 92 H 20 92 Nasal Cannula 2 Laboratory Results Abnormal lab results 10/01/22 10/01/22 Range/Units 06:45 06:45 WBC 20.47 H (4.8-10.8) K/ul RBC 2.89 L (4.20-5.40) M/uL Hgb 8.1 L (12.0-16.0) g/dl Hct 25.3 L (37.0-47.0) % Neut # (Auto) 17.49 H (1.40-6.50) K/uL Bledsoe # (Auto) 0.68 H (0.11-0.59) K/uL Glucose 128 H (70-99(Fasting)) mg/dl Calcium 8.3 L (8.6-10.3) mg/dl Iron 12 L (35-150) mcg/dl Transferrin % Sat 4 L (15-50) % Albumin 3.2 L (3.4-5.0) gm/dl PG Care Time/CCT Total # of Minutes Spent Total Time Spent with Patient: Total time spent is greater than 50% in coordination of care (as documented) at patient's floor/unit and/or counseling patient: Coding Level of Care Code 83585 SUB INP/OBS CARE MIN Diagnoses Diverticulitis K57.92 Acute respiratory failure with hypoxia J96.01 COPD exacerbation J44.1 Aortic stenosis I35.0 Obstructive sleep apnea G47.33 GERD without esophagitis K21.9 Depression with anxiety F41.8 Time Spent (min) 35
[2022-10-01] MEDS: AZITHROMYCIN 500 MG in DEXTROSE 5% 250 ML IV SCH (22:18)
[2022-10-01] MEDS: DOXEPIN HCL 50 MG CAPSULE PO SCH (22:21)
[2022-10-01] MEDS: ENOXAPARIN INJ 40 MG/0.4 ML SYR SQ SCH (22:21)
[2022-10-01] MEDS: ROSUVASTATIN CALCIUM 10 MG TAB PO SCH (22:21)
[2022-10-02] MEDS: PIPERACILLIN/TAZOBACTAM 4.5 GM in DEXTROSE 5% 100 ML IV SCH ×3 (01:50→17:44)
[2022-10-02] MEDS: BUDESONIDE 0.5 MG/2 ML VIAL (PULMICORT) NEB SCH ×2 (07:06→19:21)
[2022-10-02] MEDS: FORMOTEROL 20 MCG/2 ML VIAL NEB SCH ×2 (07:06→19:21)
[2022-10-02] MEDS: ALBUT/IPRATROP 3MG/0.5MG NEB 3 ML VIAL NEB SCH ×4 (07:06→19:21)
[2022-10-02 09:04] LABS: Hematocrit (blood only) 24.2 % (37.0-47.0); Hemoglobin 7.8 g/dl (12.0-16.0); Mean Corpuscular Hemoglobin 28.1 pg (25.0-34.0); Mean Corpuscular Hgb Conc 32.2 g/dL (32.0-36.0); Mean Corpuscular Volume 87.1 fL (80.0-100.0); Platelet Count 424 K/uL (130-400); RDW Coefficient of Variation 14.6 % (11.5-14.5); RDW Standard Deviation 46.3 fL (36.4-46.3); Red Blood Count 2.78 M/uL (4.20-5.40); White Blood Count 15.17 K/ul (4.8-10.8)
[2022-10-02 09:29] LABS: BUN Creatinine Ratio 11.7 (10-20); Calcium 8.3 mg/dl (8.6-10.3); Creatinine Clr Calc Pharmacy 37.8 ml/min; Est GFR (African American) 59.9 ml/min; Est GFR (Non-African American) 51.7 ml/min; Potassium 3.9 mmol/L (3.5-5.1)
[2022-10-02] MEDS: MONTELUKAST SODIUM 10 MG TABLET PO SCH (09:43)
[2022-10-02] MEDS: METOPROLOL SUCC 50MG EXT REL TAB PO SCH (09:43)
[2022-10-02] MEDS: UMECLIDINIUM BROMIDE 62.5MCG/BLISTER 7 PUFFS/INHALER INH SCH (09:43)
[2022-10-02] MEDS: ASPIRIN 81 MG ECTAB PO SCH (09:44)
[2022-10-02] MEDS: PARoxetine HCL 20 MG TAB PO SCH (09:44)
[2022-10-02] MEDS: PANTOprazole 40 MG in SYRINGE 0 ML IV SCH (11:27)
--- NOTE | 2022-10-02 15:33 | Hospitalist Progress Note ---
Date of Service October 02, 2022 Assessment & Plan (1) Diverticulitis: Plan: On Zosyn for better pseudomonas coverage but suspect failure more down to diet than problem with antibiotics Started on a clear liquid diet Discontinue IV fluids Follow up blood cultures although she does not appear septic despite technically meeting SIRS criteria with her HR and WBC. Will need follow up colonoscopy as outpatient in 4-6 weeks (2) Acute respiratory failure with hypoxia: Plan: Baseline on room air although she has oxygen prescribed at home she reports usually O2 sats 91-93% Required oxygen since current diagnosis of diverticulitis Treat as COPD exacerbation as below Aim O2 sats 88-92% (3) COPD exacerbation: Plan: Increased sputum production and shortness of breath Solu-medrol 125mg IV given in the ER. Will initially trial without further steroids as the diverticulitis is her main issue and hopefully she will improve just with Spiriva INH, budesonide/formoterol nebs BID and duonebs QID. Already better today. If worsening respiratory status consider heart failure as possible cause in addition Azithromycin 500mg IV for three days Sputum culture (4) Aortic stenosis: Plan: Not well visualized on last echo in July. At least moderate, probably severe. P ossibly contributing towards shortness of breath chronically but doubtful acute component in absence of over heart failure. discontinued IV fluids, started on clears (5) Obstructive sleep apnea: Plan: CPAP HS (pt reports settings of 4-12cm H20) (6) GERD without esophagitis: Plan: continuepantoprazole 40mg IV daily (7) Depression with anxiety: Plan: Continue paroxetine and doxepin Plan VTE Prophylaxis - Lovenox 40mg SQ daily Diet - clear liquid diet Admission and Anticipated Discharge Date Admission Date: October 02, 2022 Subjective Patient feels better overall. Abdominal pain is improving. She is hungry today and is ready to start a p.o. diet.Shortness of breath is improved as well. Review of Systems Review of Systems: All systems reviewed & are unremarkable except as noted in Subjective Physical Exam Physical Exam: General: Awake, conversant Heart: S1, S2/regular rate and rhythm, no murmur rubs or gallops Lungs: Clear to auscultation bilaterally. Normal effort Abdomen: Soft/nondistended/Nontender. No hepatosplenomegaly Extremities: No clubbing/cyanosis. No edema Behavior: Appropriate, cooperative Results & Data Results & Data Vital Signs (Past 12 Hours) Vital Signs Temp Pulse Resp BP Pulse Ox O2 Del Method O2 Flow Rate 10/02/22 15:13 85 16 95 Nasal Cannula 2 10/02/22 11:23 85 18 93 Nasal Cannula 2 10/02/22 08:01 Nasal Cannula 2 10/02/22 07:33 36.3 C L 86 16 153/95 H 97 Nasal Cannula 2 10/02/22 07:06 89 18 99 Nasal Cannula 3 Laboratory Results Abnormal lab results 10/02/22 10/02/22 Range/Units 08:42 08:42 WBC 15.17 H (4.8-10.8) K/ul RBC 2.78 L (4.20-5.40) M/uL Hgb 7.8 L (12.0-16.0) g/dl Hct 24.2 L (37.0-47.0) % RDW Coeff of Humza 14.6 H (11.5-14.5) % Plt Count 424 H (130-400) K/uL Chloride 111 H (98-107) mmol/L Calcium 8.3 L (8.6-10.3) mg/dl PG Care Time/CCT Total # of Minutes Spent Total Time Spent with Patient: Total time spent is greater than 50% in coordination of care (as documented) at patient's floor/unit and/or counseling patient: Coding Level of Care Code 63502 SUB INP/OBS CARE MIN Diagnoses Diverticulitis K57.92 Acute respiratory failure with hypoxia J96.01 COPD exacerbation J44.1 Aortic stenosis I35.0 Obstructive sleep apnea G47.33 GERD without esophagitis K21.9 Depression with anxiety F41.8 Time Spent (min) 35
[2022-10-02] MEDS: AZITHROMYCIN 500 MG in DEXTROSE 5% 250 ML IV SCH (21:21)
[2022-10-02] MEDS: ENOXAPARIN INJ 40 MG/0.4 ML SYR SQ SCH (21:24)
[2022-10-02] MEDS: ROSUVASTATIN CALCIUM 10 MG TAB PO SCH (22:28)
[2022-10-02] MEDS: DOXEPIN HCL 50 MG CAPSULE PO SCH (22:28)
[2022-10-03] MEDS: PIPERACILLIN/TAZOBACTAM 4.5 GM in DEXTROSE 5% 100 ML IV SCH ×3 (02:03→17:36)
[2022-10-03] MEDS: BUDESONIDE 0.5 MG/2 ML VIAL (PULMICORT) NEB SCH (07:24)
[2022-10-03] MEDS: FORMOTEROL 20 MCG/2 ML VIAL NEB SCH (07:24)
[2022-10-03] MEDS: ALBUT/IPRATROP 3MG/0.5MG NEB 3 ML VIAL NEB SCH ×4 (07:24→19:40)
[2022-10-03] MEDS: MONTELUKAST SODIUM 10 MG TABLET PO SCH (08:48)
[2022-10-03] MEDS: UMECLIDINIUM BROMIDE 62.5MCG/BLISTER 7 PUFFS/INHALER INH SCH (08:48)
[2022-10-03] MEDS: METOPROLOL SUCC 50MG EXT REL TAB PO SCH (08:49)
[2022-10-03] MEDS: PARoxetine HCL 20 MG TAB PO SCH (08:49)
[2022-10-03] MEDS: ASPIRIN 81 MG ECTAB PO SCH (08:50)
[2022-10-03] MEDS: PANTOprazole 40 MG in SYRINGE 0 ML IV SCH (09:45)
[2022-10-03 10:32] LABS: Hematocrit (blood only) 25.7 % (37.0-47.0); Hemoglobin 7.9 g/dl (12.0-16.0); Mean Corpuscular Hemoglobin 27.2 pg (25.0-34.0); Mean Corpuscular Hgb Conc 30.7 g/dL (32.0-36.0); Mean Corpuscular Volume 88.6 fL (80.0-100.0); Mean Platelet Volume 10.8 fL (9.4-12.4); Platelet Count 457 K/uL (130-400); RDW Coefficient of Variation 14.6 % (11.5-14.5); RDW Standard Deviation 47.7 fL (36.4-46.3); White Blood Count 12.17 K/ul (4.8-10.8)
[2022-10-03 11:09] LABS: BUN Creatinine Ratio 7.7 (10-20); Calcium 8.3 mg/dl (8.6-10.3); Creatinine Clr Calc Pharmacy 37.4 ml/min; Est GFR (African American) 59.2 ml/min; Est GFR (Non-African American) 51.1 ml/min; Potassium 3.5 mmol/L (3.5-5.1)
--- NOTE | 2022-10-03 15:48 | Hospitalist Progress Note ---
Date of Service October 03, 2022 Assessment & Plan (1) Diverticulitis: Plan: On Zosyn for better pseudomonas coverage but suspect failure more down to diet than problem with antibiotics advanced to full liquid diet. Monitor for deterioration as the patient had an episode of emesis this morning due to acid reflux. Discontinue IV fluids Blood culture Will need follow up colonoscopy as outpatient in 4-6 weeks (2) Acute respiratory failure with hypoxia: Plan: Baseline on room air although she has oxygen prescribed at home she reports usually O2 sats 91-93% She presented with shortness of breath and requiring more oxygen than her baseline Treat as COPD exacerbation as below Aim O2 sats 88-92% Resolved (3) COPD exacerbation: Plan: Increased sputum production and shortness of breath Solu-medrol 125mg IV given in the ER. no further doses of steroids given as the diverticulitis is her main issue and she improved just with Spiriva INH, budesonide/formoterol nebs BID and duonebs QID. Already better today. Azithromycin 500mg IV for three days Sputum culture (4) Aortic stenosis: Plan: Not well visualized on last echo in July. At least moderate, probably severe. Possibly contributing towards shortness of breath chronically but doubtful acute component in absence of over heart failure. discontinued IV fluids, started on diet (5) Obstructive sleep apnea: Plan: CPAP HS (pt reports settings of 4-12cm H20) (6) GERD without esophagitis: Plan: continuepantoprazole (7) Depression with anxiety: Plan: Continue paroxetine and doxepin Plan VTE Prophylaxis - Lovenox 40mg SQ daily Diet - clear liquid diet Admission and Anticipated Discharge Date Admission Date: October 02, 2022 Subjective patient tolerated clear liquid diet yesterday. Advance to a full liquid diet today. This morning she vomited because of acid reflux. She did not get her Protonix on time. She does not complain of increased abdominal pain. She wishes to continue to take a full liquid diet Review of Systems Review of Systems: All systems reviewed & are unremarkable except as noted in Subjective Physical Exam Physical Exam: General: Awake, conversant Heart: S1, S2/regular rate and rhythm, no murmur rubs or gallops Lungs: Clear to auscultation bilaterally. Normal effort Abdomen: Soft/nondistended/Nontender. No hepatosplenomegaly Extremities: No clubbing/cyanosis. No edema Behavior: Appropriate, cooperative Results & Data Results & Data Vital Signs (Past 12 Hours) Vital Signs Temp Pulse Resp BP Pulse Ox O2 Del Method O2 Flow Rate 10/03/22 15:27 78 15 100 Nasal Cannula 2 10/03/22 14:23 36.6 C 83 16 116/70 95 Nasal Cannula 2 10/03/22 11:25 79 15 96 Nasal Cannula 2 10/03/22 07:57 Nasal Cannula 2 10/03/22 07:34 36.6 C 69 16 148/86 H 100 Nasal Cannula 2 10/03/22 07:26 64 18 97 Nasal Cannula 3 PG Care Time/CCT Total # of Minutes Spent Total Time Spent with Patient: Total time spent is greater than 50% in coordination of care (as documented) at patient's floor/unit and/or counseling patient: Coding Level of Care Code 01835 SUB INP/OBS CARE MIN Diagnoses Diverticulitis K57.92 Acute respiratory failure with hypoxia J96.01 COPD exacerbation J44.1 Aortic stenosis I35.0 Obstructive sleep apnea G47.33 GERD without esophagitis K21.9 Depression with anxiety F41.8 Time Spent (min) 35
[2022-10-03] MEDS: MoRPHine SULFATE 2 MG/ML CARP IV PRN (18:45)
[2022-10-03] MEDS: DOXEPIN HCL 50 MG CAPSULE PO SCH (21:12)
[2022-10-03] MEDS: ROSUVASTATIN CALCIUM 10 MG TAB PO SCH (21:12)
[2022-10-03] MEDS: ENOXAPARIN INJ 40 MG/0.4 ML SYR SQ SCH (21:12)
[2022-10-04] MEDS: PIPERACILLIN/TAZOBACTAM 4.5 GM in DEXTROSE 5% 100 ML IV SCH ×3 (01:13→18:03)
[2022-10-04] MEDS: ALBUT/IPRATROP 3MG/0.5MG NEB 3 ML VIAL NEB SCH ×4 (07:55→19:51)
[2022-10-04] MEDS: METOPROLOL SUCC 50MG EXT REL TAB PO SCH (08:46)
[2022-10-04] MEDS: MONTELUKAST SODIUM 10 MG TABLET PO SCH (08:46)
[2022-10-04] MEDS: UMECLIDINIUM BROMIDE 62.5MCG/BLISTER 7 PUFFS/INHALER INH SCH (08:47)
[2022-10-04] MEDS: ASPIRIN 81 MG ECTAB PO SCH (08:47)
[2022-10-04] MEDS: PARoxetine HCL 20 MG TAB PO SCH (08:47)
[2022-10-04] MEDS: PANTOprazole 40 MG in SYRINGE 0 ML IV SCH (08:54)
[2022-10-04] MEDS: UMECLIDINIUM/VILANTEROL 62.5/25MCG 7 PUFFS/INHALER INH SCH (08:54)
[2022-10-04] MEDS: MoRPHine SULFATE 2 MG/ML CARP IV PRN ×2 (09:24→09:40)
[2022-10-04 10:29] LABS: Hemoglobin 8.5 g/dl (12.0-16.0); Mean Corpuscular Hemoglobin 27.7 pg (25.0-34.0); Mean Corpuscular Hgb Conc 31.5 g/dL (32.0-36.0); Mean Corpuscular Volume 87.9 fL (80.0-100.0); Mean Platelet Volume 11.2 fL (9.4-12.4); Platelet Count 474 K/uL (130-400); RDW Coefficient of Variation 14.7 % (11.5-14.5); RDW Standard Deviation 47.3 fL (36.4-46.3); Red Blood Count 3.07 M/uL (4.20-5.40); White Blood Count 10.83 K/ul (4.8-10.8)
[2022-10-04 10:56] LABS: BUN Creatinine Ratio 7.8 (10-20); Calcium 8.5 mg/dl (8.6-10.3); Creatinine Clr Calc Pharmacy 38.2 ml/min; Est GFR (African American) 60.6 ml/min; Est GFR (Non-African American) 52.3 ml/min; Potassium 3.1 mmol/L (3.5-5.1)
--- NOTE | 2022-10-04 16:08 | CT Scan Report ---
ABDOMEN AND PELVIS CT WITHOUT CONTRAST CT DOSE: 1039.45 mGy.cm HISTORY: Acute left lower quadrant abdominal pain increased pain and tenderness in the LLQ TECHNIQUE: Multiaxial CT images of the abdomen and pelvis were performed without contrast. A dose lo wering technique was utilized adhering to the principles of ALARA. COMPARISON STUDY: 09/30/2022 FINDINGS: Trace pleural effusions. Mild right basilar mucous plugging with subsegmental bibasilar den sities suggestive of atelectasis versus pneumonitis. No pneumatosis or pneumoperitoneum. Unremarkable spleen, pancreas and adrenal glands. Liver is within normal limits. Patency of the hepatic and kirstin l veins. Lithiasis. There is no gallbladder wall thickening or pericholecystic fluid. No biliary duct al dilation. Mild nonspecific bilateral perinephric stranding. No hydronephrosis. Mild urinary bladder wall thicke humza. Hysterectomy. Atherosclerosis of the aorta. No pathologically enlarged lymph nodes identified. Nonspecific periaortic lymph nodes measure up to 9 mm. Moderate-sized hiatal hernia. No small bowel obstruction. Colonic diverticulosis. Circumferential wal l thickening of the distal descending colon, descending sigmoid junction and proximal to mid sigmoid with adjacent inflammatory stranding, similar to prior. No inflamed diverticulum identified. Moderate fecal retention. The appendix is reportedly surgically absent. Unremarkable soft tissues. No acute f racture. Unchanged sclerosis of the left iliac bone adjacent to the SI joint. There is a large centra l disc extrusion at L3-L4. IMPRESSION: 1. Colonic diverticulosis with unchanged wall thickening and adjacent inflammatory stranding involvin g the distal descending colon and sigmoid. As previously discussed, findings may represent a nonspeci fic colitis versus acute diverticulitis however should be correlated with follow-up colonoscopy to ex clude an underlying mucosal lesion. 2. No pneumoperitoneum or abscess. 3. No bowel obstruction. 4. Cholelithiasis. 5. Trace pleural effusions. 6. Additional findings as above. ACT 112: Negative or not required by law. The above report was generated using voice recognition software. It may contain grammatical, syntax o r spelling errors. Electronically signed by: Chuy Awan M.D. 10/04/2022 4:06 PM
--- NOTE | 2022-10-04 16:23 | Hospitalist Progress Note ---
Date of Service October 04, 2022 Assessment & Plan (1) Diverticulitis: Plan: Continue Zosyn CT abdomen did not show any worsening, However patient reports worsened pain Made her n.p.o. again with ice chips and medications Blood culture negative Blood culture negative Will need follow up colonoscopy as outpatient in 4-6 weeks (2) Acute respiratory failure with hypoxia: Plan: Baseline on room air although she has oxygen prescribed at home she reports usually O2 sats 91-93% She presented with shortness of breath and requiring more oxygen than her baseline Treat as COPD exacerbation as below Aim O2 sats 88-92% Resolved (3) COPD exacerbation: Plan: Increased sputum production and shortness of breath Solu-medrol 125mg IV given in the ER. no further doses of steroids given as the diverticulitis is her main issue and she improved just with Spiriva INH, budesonide/formoterol nebs BID and duonebs QID. Already better today. Azithromycin 500mg IV for three days Sputum culture (4) Aortic stenosis: Plan: Not well visualized on last echo in July. At least moderate, probably severe. Possibly contributing towards shortness of breath chronically but doubtful acute component in absence of over heart failure. discontinued IV fluids, started on diet (5) Obstructive sleep apnea: Plan: CPAP HS (pt reports settings of 4-12cm H20) (6) GERD without esophagitis: Plan: continuepantoprazole (7) Depression with anxiety: Plan: Continue paroxetine and doxepin Plan VTE Prophylaxis - Lovenox 40mg SQ daily Diet - clear liquid diet Admission and Anticipated Discharge Date Admission Date: October 02, 2022 Subjective patient complains that her abdominal pain is worse today. Made her n.p.o. Repeated CT abdomen which did not show any worsening. Review of Systems Review of Systems: All systems reviewed & are unremarkable except as noted in Subjective Physical Exam Physical Exam: General: Awake, conversant Heart: S1, S2/regular rate and rhythm, no murmur rubs or gallops Lungs: Clear to auscultation bilaterally. Normal effort Abdomen: Soft/nondistended/ Tenderness to palpation in the left lower quadrant without any rebound, rigidity or guarding.. No hepatosplenomegaly Extremities: No clubbing/cyanosis. No edema Behavior: Appropriate, cooperative Results & Data Results & Data Vital Signs (Past 12 Hours) Vital Signs Temp Pulse Resp BP Pulse Ox O2 Del Method O2 Flow Rate 10/04/22 15:08 84 18 98 Nasal Cannula 2 10/04/22 11:18 68 16 95 Nasal Cannula 2 10/04/22 08:00 81 16 94 Nasal Cannula 2 10/04/22 07:21 36.4 C L 76 18 116/69 97 Nasal Cannula 4 Laboratory Results Abnormal lab results 10/04/22 10/04/22 Range/Units 09:33 09:33 WBC 10.83 H (4.8-10.8) K/ul RBC 3.07 L (4.20-5.40) M/uL Hgb 8.5 L (12.0-16.0) g/dl Hct 27.0 L (37.0-47.0) % MCHC 31.5 L (32.0-36.0) g/dL RDW Std Deviation 47.3 H (36.4-46.3) fL RDW Coeff of Humza 14.7 H (11.5-14.5) % Plt Count 474 H (130-400) K/uL Potassium 3.1 L (3.5-5.1) mmol/L Chloride 108 H (98-107) mmol/L BUN/Creatinine Ratio 7.8 L (10-20) Glucose 108 H (70-99(Fasting)) mg/dl Calcium 8.5 L (8.6-10.3) mg/dl PG Care Time/CCT Total # of Minutes Spent Total Time Spent with Patient: Total time spent is greater than 50% in coordination of care (as documented) at patient's floor/unit and/or counseling patient: Coding Level of Care Code 87739 SUB INP/OBS CARE MIN Diagnoses Diverticulitis K57.92 Acute respiratory failure with hypoxia J96.01 COPD exacerbation J44.1 Aortic stenosis I35.0 Obstructive sleep apnea G47.33 GERD without esophagitis K21.9 Depression with anxiety F41.8
[2022-10-04] MEDS: DOXEPIN HCL 50 MG CAPSULE PO SCH (20:11)
[2022-10-04] MEDS: ROSUVASTATIN CALCIUM 10 MG TAB PO SCH (20:11)
[2022-10-04] MEDS: ENOXAPARIN INJ 40 MG/0.4 ML SYR SQ SCH (20:11)
[2022-10-05] MEDS: PIPERACILLIN/TAZOBACTAM 4.5 GM in DEXTROSE 5% 100 ML IV SCH ×3 (01:15→18:23)
[2022-10-05 06:09] LABS: Hematocrit (blood only) 26.3 % (37.0-47.0); Hemoglobin 8.4 g/dl (12.0-16.0); Mean Corpuscular Hemoglobin 27.3 pg (25.0-34.0); Mean Corpuscular Hgb Conc 31.9 g/dL (32.0-36.0); Mean Corpuscular Volume 85.4 fL (80.0-100.0); Mean Platelet Volume 10.9 fL (9.4-12.4); Platelet Count 460 K/uL (130-400); RDW Coefficient of Variation 14.6 % (11.5-14.5); Red Blood Count 3.08 M/uL (4.20-5.40); White Blood Count 10.35 K/ul (4.8-10.8)
[2022-10-05 06:25] LABS: BUN Creatinine Ratio 9.4 (10-20); Calcium 8.2 mg/dl (8.6-10.3); Creatinine Clr Calc Pharmacy 40.5 ml/min; Est GFR (African American) 65.2 ml/min; Est GFR (Non-African American) 56.2 ml/min; Potassium 3.2 mmol/L (3.5-5.1)
[2022-10-05] MEDS: ALBUT/IPRATROP 3MG/0.5MG NEB 3 ML VIAL NEB SCH ×4 (07:10→19:28)
[2022-10-05] MEDS: ONDANSETRON INJ 2 MG/ML 2 ML VIAL IV PRN ×2 (08:23→21:35)
[2022-10-05] MEDS: UMECLIDINIUM BROMIDE 62.5MCG/BLISTER 7 PUFFS/INHALER INH SCH (08:29)
[2022-10-05] MEDS: UMECLIDINIUM/VILANTEROL 62.5/25MCG 7 PUFFS/INHALER INH SCH (08:29)
[2022-10-05] MEDS: METOPROLOL SUCC 50MG EXT REL TAB PO SCH (08:36)
[2022-10-05] MEDS: ASPIRIN 81 MG ECTAB PO SCH (08:36)
[2022-10-05] MEDS: MONTELUKAST SODIUM 10 MG TABLET PO SCH (08:36)
[2022-10-05] MEDS: PARoxetine HCL 20 MG TAB PO SCH (08:36)
[2022-10-05] MEDS: POTASSIUM CHLORIDE / WTR 10 MEQ/100 ML PLCT IV SCH ×4 (09:25→16:15)
[2022-10-05] MEDS: PANTOprazole 40 MG in SYRINGE 0 ML IV SCH (10:06)
[2022-10-05] MEDS: MoRPHine SULFATE 2 MG/ML CARP IV PRN ×2 (11:32→21:35)
--- NOTE | 2022-10-05 11:53 | Hospitalist Progress Note ---
Date of Service October 05, 2022 Assessment & Plan (1) Diverticulitis: Plan: Continue Zosyn CT abdomen did not show any worsening, However patient reported Worsening pain. Patient was made n.p.o. again on 10/04. We will start her on IV fluid at 80 mils an hour Replete potassium Will need follow up colonoscopy as outpatient in 4-6 weeks (2) Acute respiratory failure with hypoxia: Plan: Baseline on room air although she has oxygen prescribed at home she reports usually O2 sats 91-93% She presented with shortness of breath and requiring more oxygen than her baseline Treat as COPD exacerbation as below Aim O2 sats 88-92% Resolved (3) COPD exacerbation: Plan: Increased sputum production and shortness of breath on admission Solu-medrol 125mg IV given in the ER. no further doses of steroids given as the diverticulitis is her main issue and she improved just with Spiriva INH, budesonide/formoterol nebs BID and duonebs QID. Already better today. completed course of azithromycin seems to have resolved. (4) Aortic stenosis: Plan: Not well visualized on last echo in July. At least moderate, probably severe. Possibly contributing towards shortness of breath chronically but doubtful acute component in absence of over heart failure. Resume slow IV fluids since NPO. Watch for fluid overload (5) Obstructive sleep apnea: Plan: CPAP HS (pt reports settings of 4-12cm H20) (6) GERD without esophagitis: Plan: continuepantoprazole (7) Depression with anxiety: Plan: Continue paroxetine and doxepin Plan VTE Prophylaxis - Lovenox 40mg SQ daily Diet - clear liquid diet Admission and Anticipated Discharge Date Admission Date: October 02, 2022 Subjective patient is feeling slightly better than yesterday. Her pain is better controlled. She is not short of breath today. Review of Systems Review of Systems: All systems reviewed & are unremarkable except as noted in Subjective Physical Exam Physical Exam: General: Awake, conversant Heart: S1, S2/regular rate and rhythm, no murmur rubs or gallops Lungs: Clear to auscultation bilaterally. Normal effort Abdomen: Soft/nondistended/ Tenderness to palpation in the left lower quadrant without any rebound, rigidity or guarding.. No hepatosplenomegaly Extremities: No clubbing/cyanosis. No edema Behavior: Appropriate, cooperative Results & Data Results & Data Vital Signs (Past 12 Hours) Vital Signs Temp Pulse Resp BP Pulse Ox O2 Del Method O2 Flow Rate 10/05/22 07:56 36.8 C 91 H 18 154/77 H 93 Room Air 10/05/22 07:10 90 17 94 Nasal Cannula 2 Laboratory Results Abnormal lab results 10/05/22 10/05/22 Range/Units 05:27 05:27 RBC 3.08 L (4.20-5.40) M/uL Hgb 8.4 L (12.0-16.0) g/dl Hct 26.3 L (37.0-47.0) % MCHC 31.9 L (32.0-36.0) g/dL RDW Coeff of Humza 14.6 H (11.5-14.5) % Plt Count 460 H (130-400) K/uL Potassium 3.2 L (3.5-5.1) mmol/L BUN/Creatinine Ratio 9.4 L (10-20) Glucose 107 H (70-99(Fasting)) mg/dl Calcium 8.2 L (8.6-10.3) mg/dl Diagnostic Findings Abdomen/Pelvis CT 10/04/22 14:[address] WITHOUT CONTRAST CT DOSE: 1039.45 mGy.cm HISTORY: Acute left lower quadrant abdominal pain increased pain and tenderness in the LLQ TECHNIQUE: Multiaxial CT images of the abdomen and pelvis were performed without contrast. A dose lowering technique was utilized adhering to the principles of ALARA. COMPARISON STUDY: 09/30/2022 FINDINGS: Trace pleural effusions. Mild right basilar mucous plugging with subsegmental bibasilar densities suggestive of atelectasis versus pneumonitis. No pneumatosis or pneumoperitoneum. Unremarkable spleen, pancreas and adrenal glands. Liver is within normal limits. Patency of the hepatic and portal veins. Lithiasis. There is no gallbladder wall thickening or pericholecystic fluid. No biliary ductal dilation. Mild nonspecific bilateral perinephric stranding. No hydronephrosis. Mild urinary bladder wall thickening. Hysterectomy. Atherosclerosis of the aorta. No pathologically enlarged lymph nodes identified. Nonspecific periaortic lymph nodes measure up to 9 mm. Moderate-sized hiatal hernia. No small bowel obstruction. Colonic diverticulosis. Circumferential wall thickening of the distal descending colon, descending sigmoid junction and proximal to mid sigmoid with adjacent inflammatory stranding, similar to prior. No inflamed diverticulum identified. Moderate fecal retention. The appendix is reportedly surgically absent. Unremarkable soft tissues. No acute fracture. Unchanged sclerosis of the left iliac bone adjacent to the SI joint. There is a large central disc extrusion at L3-L4. IMPRESSION: 1. Colonic diverticulosis with unchanged wall thickening and adjacent inflammatory stranding involving the distal descending colon and sigmoid. As previously discussed, findings may represent a nonspecific colitis versus acute diverticulitis however should be correlated with follow-up colonoscopy to exclude an underlying mucosal lesion. 2. No pneumoperitoneum or abscess. 3. No bowel obstruction. 4. Cholelithiasis. 5. Trace pleural effusions. 6. Additional findings as above. ACT 112: Negative or not required by law. The above report was generated using voice recognition software. It may contain grammatical, syntax or spelling errors. Electronically signed by: Chuy Awan M.D. 10/04/2022 4:06 PM PG Care Time/CCT Total # of Minutes Spent Total Time Spent with Patient: Total time spent is greater than 50% in coordination of care (as documented) at patient's floor/unit and/or counseling patient: Coding Level of Care Code 53536 SUB INP/OBS CARE 2/35MIN Diagnoses Diverticulitis K57.92 Acute respiratory failure with hypoxia J96.01 COPD exacerbation J44.1 Aortic stenosis I35.0 Obstructive sleep apnea G47.33 GERD without esophagitis K21.9 Depression with anxiety F41.8
[2022-10-05] MEDS: SODIUM CHLORIDE 0.9% 1000ML 1,000 ML IV SCH (12:35)
[2022-10-05] MEDS: ENOXAPARIN INJ 40 MG/0.4 ML SYR SQ SCH (20:20)
[2022-10-05] MEDS: DOXEPIN HCL 50 MG CAPSULE PO SCH (20:21)
[2022-10-05] MEDS: ROSUVASTATIN CALCIUM 10 MG TAB PO SCH (20:21)
[2022-10-06] MEDS: PIPERACILLIN/TAZOBACTAM 4.5 GM in DEXTROSE 5% 100 ML IV SCH ×3 (00:51→18:15)
[2022-10-06] MEDS: SODIUM CHLORIDE 0.9% 1000ML 1,000 ML IV SCH (00:51)
[2022-10-06] MEDS: ALBUT/IPRATROP 3MG/0.5MG NEB 3 ML VIAL NEB SCH ×4 (07:12→20:05)
[2022-10-06 07:40] LABS: Hematocrit (blood only) 25.9 % (37.0-47.0); Mean Corpuscular Hemoglobin 27.4 pg (25.0-34.0); Mean Corpuscular Hgb Conc 30.9 g/dL (32.0-36.0); Mean Corpuscular Volume 88.7 fL (80.0-100.0); Mean Platelet Volume 11.1 fL (9.4-12.4); Platelet Count 403 K/uL (130-400); RDW Coefficient of Variation 14.7 % (11.5-14.5); RDW Standard Deviation 47.5 fL (36.4-46.3); Red Blood Count 2.92 M/uL (4.20-5.40); White Blood Count 11.59 K/ul (4.8-10.8)
[2022-10-06 08:00] LABS: Calcium 7.8 mg/dl (8.6-10.3); Creatinine Clr Calc Pharmacy 44.2 ml/min; Est GFR (African American) 72.4 ml/min; Est GFR (Non-African American) 62.5 ml/min; Potassium 3.7 mmol/L (3.5-5.1)
[2022-10-06] MEDS: METOPROLOL SUCC 50MG EXT REL TAB PO SCH (08:40)
[2022-10-06] MEDS: MONTELUKAST SODIUM 10 MG TABLET PO SCH (08:40)
[2022-10-06] MEDS: PARoxetine HCL 20 MG TAB PO SCH (08:40)
[2022-10-06] MEDS: ASPIRIN 81 MG ECTAB PO SCH (08:40)
[2022-10-06] MEDS: UMECLIDINIUM BROMIDE 62.5MCG/BLISTER 7 PUFFS/INHALER INH SCH (08:41)
[2022-10-06] MEDS: UMECLIDINIUM/VILANTEROL 62.5/25MCG 7 PUFFS/INHALER INH SCH (08:41)
[2022-10-06] MEDS: PANTOprazole 40 MG in SYRINGE 0 ML IV SCH (09:21)
--- NOTE | 2022-10-06 16:26 | Hospitalist Progress Note ---
Date of Service October 06, 2022 Assessment & Plan (1) Diverticulitis: Plan: Continue Zosyn CT abdomen did not show any worsening on 10/04, However patient reported Worsening pain. Patient was made n.p.o. again on 10/04. today her pain seems better, will start her on a clear liquid diet Discontinue IV fluids as no more n.p.o. Replete potassium Will need follow up colonoscopy as outpatient in 4-6 weeks (2) Acute respiratory failure with hypoxia: Plan: Baseline on room air although she has oxygen prescribed at home she reports usually O2 sats 91-93% She presented with shortness of breath and requiring more oxygen than her baseline Treat as COPD exacerbation as below Aim O2 sats 88-92% Resolved (3) COPD exacerbation: Plan: Increased sputum production and shortness of breath on admission Solu-medrol 125mg IV given in the ER. no further doses of steroids given as the diverticulitis is her main issue and she improved just with Spiriva INH, budesonide/formoterol nebs BID and duonebs QID. Already better today. completed course of azithromycin seems to have resolved. (4) Aortic stenosis: Plan: Not well visualized on last echo in July. At least moderate, probably severe. Possibly contributing towards shortness of breath chronically but doubtful acute component in absence of over heart failure. discontinue IV fluids as no more n.p.o. (5) Obstructive sleep apnea: Plan: CPAP HS (pt reports settings of 4-12cm H20) (6) GERD without esophagitis: Plan: continuepantoprazole (7) Depression with anxiety: Plan: Continue paroxetine and doxepin Plan VTE Prophylaxis - Lovenox 40mg SQ daily Diet - clear liquid diet Admission and Anticipated Discharge Date Admission Date: October 02, 2022 Subjective patient says that her belly pain is better today. She would like to start a clear liquid diet Trial again. Review of Systems Review of Systems: All systems reviewed & are unremarkable except as noted in Subjective Physical Exam Physical Exam: General: Awake, conversant Heart: S1, S2/regular rate and rhythm, no murmur rubs or gallops Lungs: Clear to auscultation bilaterally. Normal effort Abdomen: Soft/nondistended/ mild Tenderness to palpation in the left lower quadrant without any rebound, rigidity or guarding.. No hepatosplenomegaly Extremities: No clubbing/cyanosis. No edema Behavior: Appropriate, cooperative Results & Data Results & Data Vital Signs (Past 12 Hours) Vital Signs Temp Pulse Resp BP Pulse Ox O2 Del Method O2 Flow Rate 10/06/22 14:42 36.4 C L 79 18 125/75 99 Nasal Cannula 3 10/06/22 14:34 90 18 97 Nasal Cannula 2 10/06/22 10:46 90 18 93 Nasal Cannula 2 10/06/22 07:30 Nasal Cannula 2 10/06/22 07:53 36.7 C 86 18 117/69 94 Room Air 10/06/22 07:13 90 18 95 Nasal Cannula 2 PG Care Time/CCT Total # of Minutes Spent Total Time Spent with Patient: Total time spent is greater than 50% in coordination of care (as documented) at patient's floor/unit and/or counseling patient: Coding Level of Care Code 58090 SUB INP/OBS CARE 2/35MIN Diagnoses Diverticulitis K57.92 Acute respiratory failure with hypoxia J96.01 COPD exacerbation J44.1 Aortic stenosis I35.0 Obstructive sleep apnea G47.33 GERD without esophagitis K21.9 Depression with anxiety F41.8
[2022-10-06] MEDS: ONDANSETRON INJ 2 MG/ML 2 ML VIAL IV PRN (17:19)
[2022-10-06] MEDS: ALUMINUM/MAGNESIUM/SIMETH (MAALOX MAX) 30 ML UDC PO PRN (18:14)
[2022-10-06] MEDS: ROSUVASTATIN CALCIUM 10 MG TAB PO SCH (20:27)
[2022-10-06] MEDS: ENOXAPARIN INJ 40 MG/0.4 ML SYR SQ SCH (20:27)
[2022-10-06] MEDS: DOXEPIN HCL 50 MG CAPSULE PO SCH (20:27)
[2022-10-07] MEDS: PIPERACILLIN/TAZOBACTAM 4.5 GM in DEXTROSE 5% 100 ML IV SCH ×3 (01:42→17:41)
[2022-10-07 06:40] LABS: Hematocrit (blood only) 24.2 % (37.0-47.0); Hemoglobin 7.8 g/dl (12.0-16.0); Mean Corpuscular Hemoglobin 27.9 pg (25.0-34.0); Mean Corpuscular Hgb Conc 32.2 g/dL (32.0-36.0); Mean Corpuscular Volume 86.4 fL (80.0-100.0); Mean Platelet Volume 11.5 fL (9.4-12.4); Platelet Count 393 K/uL (130-400); RDW Coefficient of Variation 14.8 % (11.5-14.5); RDW Standard Deviation 46.8 fL (36.4-46.3); White Blood Count 9.13 K/ul (4.8-10.8)
[2022-10-07] MEDS: ALBUT/IPRATROP 3MG/0.5MG NEB 3 ML VIAL NEB SCH ×4 (06:53→19:36)
[2022-10-07 07:03] LABS: Potassium 3.8 mmol/L (3.5-5.1)
[2022-10-07 07:09] LABS: BUN Creatinine Ratio 6.3 (10-20)
[2022-10-07] MEDS: PARoxetine HCL 20 MG TAB PO SCH (08:11)
[2022-10-07] MEDS: ASPIRIN 81 MG ECTAB PO SCH (08:11)
[2022-10-07] MEDS: UMECLIDINIUM/VILANTEROL 62.5/25MCG 7 PUFFS/INHALER INH SCH (08:11)
[2022-10-07] MEDS: UMECLIDINIUM BROMIDE 62.5MCG/BLISTER 7 PUFFS/INHALER INH SCH (08:11)
[2022-10-07] MEDS: PANTOprazole 40 MG in SYRINGE 0 ML IV SCH (08:11)
[2022-10-07] MEDS: METOPROLOL SUCC 50MG EXT REL TAB PO SCH (08:11)
[2022-10-07] MEDS: MONTELUKAST SODIUM 10 MG TABLET PO SCH (08:38)
--- NOTE | 2022-10-07 13:45 | Hospitalist Progress Note ---
Date of Service October 07, 2022 Assessment & Plan (1) Diverticulitis: Plan: Continue Zosyn CT abdomen did not show any worsening on 10/04, However patient reported Worsening pain. Patient was made n.p.o. again on 10/04. today her pain seems better, And she has been tolerating a clear liquid diet We will advance to a full liquid diet today. Will need follow up colonoscopy as outpatient in 4-6 weeks (2) Acute respiratory failure with hypoxia: Plan: Baseline on room air although she has oxygen prescribed at home she reports usually O2 sats 91-93% She presented with shortness of breath and requiring more oxygen than her baseline Treat as COPD exacerbation as below Aim O2 sats 88-92% Resolved (3) COPD exacerbation: Plan: Increased sputum production and shortness of breath on admission Solu-medrol 125mg IV given in the ER. no further doses of steroids given as the diverticulitis is her main issue and she improved just with Spiriva INH, budesonide/formoterol nebs BID and duonebs QID. Already better today. completed course of azithromycin seems to have resolved. (4) Aortic stenosis: Plan: Not well visualized on last echo in July. At least moderate, probably severe. Possibly contributing towards shortness of breath chronically but doubtful acute component in absence of over heart failure. discontinue IV fluids as no more n.p.o. (5) Obstructive sleep apnea: Plan: CPAP HS (pt reports settings of 4-12cm H20) (6) GERD without esophagitis: Plan: continue pantoprazole (7) Depression with anxiety: Plan: Continue paroxetine and doxepin Plan VTE Prophylaxis - Lovenox 40mg SQ daily Diet - clear liquid diet Admission and Anticipated Discharge Date Admission Date: October 02, 2022 Subjective patient feels better today. Abdominal pain is improving. She would like to advance to a full liquid diet today. Review of Systems Review of Systems: All systems reviewed & are unremarkable except as noted in Subjective Physical Exam Physical Exam: General: Awake, conversant Heart: S1, S2/regular rate and rhythm, no murmur rubs or gallops Lungs: Clear to auscultation bilaterally. Normal effort Abdomen: Soft/nondistended/ mild Tenderness to palpation in the left lower quadrant without any rebound, rigidity or guarding.. No hepatosplenomegaly Extremities: No clubbing/cyanosis. No edema Behavior: Appropriate, cooperative Results & Data Results & Data Vital Signs (Past 12 Hours) Vital Signs Temp Pulse Pulse Resp BP Pulse Ox O2 Del Method 10/07/22 11:18 88 17 93 Nasal Cannula 10/07/22 08:18 Nasal Cannula 10/07/22 07:31 36.5 C 77 20 105/61 97 Nasal Cannula 10/07/22 06:53 90 17 93 Nasal Cannula O2 Flow Rate 10/07/22 11:18 2 10/07/22 08:18 2 10/07/22 07:31 2 10/07/22 06:53 2 PG Care Time/CCT Total # of Minutes Spent Total Time Spent with Patient: Total time spent is greater than 50% in coordination of care (as documented) at patient's floor/unit and/or counseling patient: Coding Level of Care Code 89118 SUB INP/OBS CARE 2/35MIN Diagnoses Diverticulitis K57.92 Acute respiratory failure with hypoxia J96.01 COPD exacerbation J44.1 Aortic stenosis I35.0 Obstructive sleep apnea G47.33 GERD without esophagitis K21.9 Depression with anxiety F41.8
[2022-10-07] MEDS: ALUMINUM/MAGNESIUM/SIMETH (MAALOX MAX) 30 ML UDC PO PRN (16:09)
[2022-10-07] MEDS: MoRPHine SULFATE 2 MG/ML CARP IV PRN (19:24)
[2022-10-07] MEDS: ENOXAPARIN INJ 40 MG/0.4 ML SYR SQ SCH (21:35)
[2022-10-07] MEDS: ROSUVASTATIN CALCIUM 10 MG TAB PO SCH (21:35)
[2022-10-07] MEDS: DOXEPIN HCL 50 MG CAPSULE PO SCH (21:35)
[2022-10-08] MEDS: PIPERACILLIN/TAZOBACTAM 4.5 GM in DEXTROSE 5% 100 ML IV SCH ×3 (02:18→18:15)
[2022-10-08 07:27] LABS: Hematocrit (blood only) 24.1 % (37.0-47.0); Hemoglobin 7.6 g/dl (12.0-16.0); Mean Corpuscular Hemoglobin 27.6 pg (25.0-34.0); Mean Corpuscular Hgb Conc 31.5 g/dL (32.0-36.0); Mean Corpuscular Volume 87.6 fL (80.0-100.0); Mean Platelet Volume 10.7 fL (9.4-12.4); Platelet Count 375 K/uL (130-400); RDW Coefficient of Variation 15.1 % (11.5-14.5); RDW Standard Deviation 48.3 fL (36.4-46.3); Red Blood Count 2.75 M/uL (4.20-5.40); White Blood Count 8.63 K/ul (4.8-10.8)
[2022-10-08] MEDS: ALBUT/IPRATROP 3MG/0.5MG NEB 3 ML VIAL NEB SCH (07:33)
[2022-10-08 07:43] LABS: BUN Creatinine Ratio 6.6 (10-20); Calcium 7.8 mg/dl (8.6-10.3); Creatinine Clr Calc Pharmacy 42.8 ml/min; Est GFR (African American) 69.5 ml/min; Potassium 3.5 mmol/L (3.5-5.1)
[2022-10-08] MEDS ORDERED: ALBUT/IPRATROP 3MG/0.5MG NEB 3 ML VIAL NEB PRN (09:02)
[2022-10-08] MEDS: ASPIRIN 81 MG ECTAB PO SCH (09:13)
[2022-10-08] MEDS: PANTOprazole 40 MG in SYRINGE 0 ML IV SCH (09:13)
[2022-10-08] MEDS: METOPROLOL SUCC 50MG EXT REL TAB PO SCH (09:13)
[2022-10-08] MEDS: PARoxetine HCL 20 MG TAB PO SCH (09:13)
[2022-10-08] MEDS: MONTELUKAST SODIUM 10 MG TABLET PO SCH (09:13)
[2022-10-08] MEDS: UMECLIDINIUM/VILANTEROL 62.5/25MCG 7 PUFFS/INHALER INH SCH (09:14)
[2022-10-08] MEDS ORDERED: IRON SUCROSE 200 MG in 0.9 % SODIUM CHLORIDE 100 ML IV ONE (10:00)
[2022-10-08] MEDS ORDERED: Nursing to Pharmacy Communication SCH (10:45)
[2022-10-08] MEDS: ALBUTEROL HFA 8 GM INHALER INH SCH ×2 (13:21→19:40)
--- NOTE | 2022-10-08 13:26 | Hospitalist Progress Note ---
Date of Service October 08, 2022 Assessment & Plan (1) Diverticulitis: Plan: Distal descending colon/sigmoid. Dx initially 09/19/22 at [facility]. Treated with 10 day course of augmentin 500mg tabs. Did not improve. Her augmentin was then increased to 875mg tabs when she wasn't improving. Then presented here on 09/30/22 with ongoing abd pain. Started on zosyn at that time. SLOW progress/slow improvement and in fact had worsening pain 10/03 and 10/04. Repeat CT on 10/04 without abscess, free air, or phlegmon. No worsening of the colitis vs diverticulitis in the descending colon/sigmoid. Made NPO again on 10/04. Clears ultimately resumed again and advanced to full liquids on 10/07. Has tolerated such. Benign abdomen today. Normal labs. Will allow low fiber diet tonight. Re-eval tomorrow. Very odd clinical course as she is nearly 3 weeks into her illness. If not diverticulitis - inflammatory bowel? ischemic colitis? (although never had BRBPR) infectious colitis? other? Check crp in am. Will need follow up colonoscopy as outpatient in 4-6 weeks - will refer back to Dr López, [facility] general surgery. if any worsening overnight then gen surg/GI consultations here. (2) COPD exacerbation: Plan: improved/resolved. states breathing is at baseline today. s/p 5day course of zithromax. had IV steroids early in the stay but these were not continued. cont usual inhalers. cont bronchodilators. stable O2 sats on 2 L NC O2. (3) Aortic stenosis: Plan: At least moderate, probably severe. Will need ongoing surveillance with cardiology. (4) Obstructive sleep apnea: Plan: auto-CPAP HS (pt reports settings of 4-12cm H20) (5) GERD without esophagitis: Plan: continue pantoprazole states she is having some ongoing GERD symptoms -- add carafate qid (6) Depression with anxiety: Plan: Continue paroxetine and doxepin (7) Iron deficiency anemia: Plan: Hb 12.7 in April 2022 slowly trended down over the last few months Fe studies c/w Fe def (transferrin sat 4%, ferritin 64, etc) venofer 200mg IV x 1 today if she tolerates such - repeat venofer tomorrow (probably 300mg then) given the Fe def and h/o recurrent bowel issues - and now #1 - will need w/u (colonoscopy +/- EGD, etc) (8) H/O small bowel obstruction: Plan: 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 Plan VTE Prophylaxis - Lovenox 40mg SQ daily obtain PT/OT evals to ensure safe for home left message for pt's niece on her voicemail this evening Admission and Anticipated Discharge Date Admission Date: October 02, 2022 Subjective pt denies ANY abd pain, nausea or emesis having stool - brown, somewhat loose; no melena; no BRBPR we discussed her anemia and her Fe deficiency was not aware of anemia last colonoscopy was in the by Dr López at [facility] was told at that time it was normal records reviewed - had SBO at [facility] earlier this spring - resolved with conservative Rx Hb at that time was about 11-12 a short time later was re-admitted for COPD exacerbation hemoglobin was trending down closer to 10 Review of Systems Review of Systems: gen - no fevers, no chills cv - no chest pain pulm - dyspnea and PADILLA is at baseline per patient GI - no GI symptoms Physical Exam Physical Exam: gen - NAD, resting comfortably in bed neck - no JVD mouth - MMM, no thrush heart - RRR, s1 s2 lungs - mild end-exp wheezes b/l, no increased work of breathing abd - soft NT ND BS+; no peritoneal signs ext - no edema, pulses 2+ b/l Results & Data Results & Data Vital Signs (Past 12 Hours) Vital Signs Temp Pulse Resp BP Pulse Ox O2 Del Method O2 Flow Rate 10/08/22 13:21 89 18 93 Nasal Cannula 2 10/08/22 08:13 36.8 C 86 18 108/54 L 92 Nasal Cannula 2.0 10/08/22 07:42 Nasal Cannula 2 10/08/22 07:33 86 18 92 Nasal Cannula 2 Laboratory Results Laboratory Results - last 24 hr 10/08/22 10/08/22 07:07 07:07 WBC 8.63 RBC 2.75 L Hgb 7.6 L Hct 24.1 L MCV 87.6 MCH 27.6 MCHC 31.5 L RDW Std Deviation 48.3 H RDW Coeff of Humza 15.1 H Plt Count 375 MPV 10.7 Sodium 140 Potassium 3.5 Chloride 109 H Carbon Dioxide 27 Anion Gap 4 BUN 6 Creatinine 0.91 Est Cr Clr Drug Dosing 42.8 Est GFR ( Amer) 69.5 Est GFR (Non-Af Amer) 60.0 BUN/Creatinine Ratio 6.6 L Glucose 95 Calcium 7.8 L PG Care Time/CCT Total # of Minutes Spent Total Time Spent with Patient: Total time spent is greater than 50% in coordination of care (as documented) at patient's floor/unit and/or counseling patient: Coding Level of Care Code 44088 SUB INP/OBS CARE 235MIN Diagnoses Diverticulitis K57.92 COPD exacerbation J44.1 Aortic stenosis I35.0 Obstructive sleep apnea G47.33 GERD without esophagitis K21.9 Depression with anxiety F41.8 Iron deficiency anemia D50.9 H/O small bowel obstruction Z87.19
[2022-10-08] MEDS: SUCRALFATE 1 GM/10 ML UDC PO SCH ×2 (16:10→20:33)
[2022-10-08] MEDS: ROSUVASTATIN CALCIUM 10 MG TAB PO SCH (20:33)
[2022-10-08] MEDS: ENOXAPARIN INJ 40 MG/0.4 ML SYR SQ SCH (20:33)
[2022-10-08] MEDS: DOXEPIN HCL 50 MG CAPSULE PO SCH (22:23)
[2022-10-08] MEDS: MoRPHine SULFATE 2 MG/ML CARP IV PRN (22:26)
[2022-10-09] MEDS: ALUMINUM/MAGNESIUM/SIMETH (MAALOX MAX) 30 ML UDC PO PRN (02:26)
[2022-10-09] MEDS: PIPERACILLIN/TAZOBACTAM 4.5 GM in DEXTROSE 5% 100 ML IV SCH ×2 (02:28→10:55)
[2022-10-09 07:14] LABS: Hemoglobin 8.3 g/dl (12.0-16.0); Mean Corpuscular Hemoglobin 27.7 pg (25.0-34.0); Mean Corpuscular Hgb Conc 31.9 g/dL (32.0-36.0); Mean Corpuscular Volume 86.7 fL (80.0-100.0); Platelet Count 401 K/uL (130-400); RDW Coefficient of Variation 15.5 % (11.5-14.5); White Blood Count 11.47 K/ul (4.8-10.8)
[2022-10-09] MEDS: ALBUTEROL HFA 8 GM INHALER INH SCH ×2 (07:32→13:29)
[2022-10-09 07:35] LABS: C Reactive Protein 5.23 mg/dl (0-0.5)
[2022-10-09] MEDS ORDERED: IRON SUCROSE 300 MG in SODIUM CHLORIDE 0.9% 250 ML IV ONE (07:45)
[2022-10-09] MEDS: MONTELUKAST SODIUM 10 MG TABLET PO SCH (09:02)
[2022-10-09] MEDS: SUCRALFATE 1 GM/10 ML UDC PO SCH ×3 (09:02→16:21)
[2022-10-09] MEDS: PARoxetine HCL 20 MG TAB PO SCH (09:02)
[2022-10-09] MEDS: METOPROLOL SUCC 50MG EXT REL TAB PO SCH (09:02)
[2022-10-09] MEDS: ASPIRIN 81 MG ECTAB PO SCH (09:02)
[2022-10-09] MEDS: PANTOprazole 40 MG in SYRINGE 0 ML IV SCH (09:02)
[2022-10-09] MEDS: UMECLIDINIUM/VILANTEROL 62.5/25MCG 7 PUFFS/INHALER INH SCH (09:03)
[2022-10-09 15:34] LABS: Appearance Urine Clear (Clear); Bilirubin Urine Negative (Negative); Blood Urine Negative (Negative); Color Urine Yellow; Glucose Urine UA Negative (Negative); Ketones Urine Negative (Negative); Leukocyte Esterase Urine Negative (Negative); Nitrite Urine Negative (Negative); Protein Urine Negative (Negative); Specific Gravity Urine 1.018 (1.000-1.030); Urobilinogen Urine Negative (Negative)
--- NOTE | 2022-10-09 16:26 | Discharge Summary ---
Date of Service October 09, 2022 Admission HPI Per Admitting Provider Najma Arreaga is a 77 year old female who presents to the ER with abdominal pain. She notes no history of diverticulitis prior to recent events however she does have a significant history of bowel obstructions. 1 week ago she was having left lower quadrant pain and went to [facility]. She was diagnosed with acute diverticulitis and started on Augmentin 500/125 for 10 days on September 19. She was advised to go down to a soft diet but report she was never really eating that much as she didn't feel like it. No diarrhea, melena or hematochezia. The pain started getting worse yesterday therefore returned to [facility] and Augmentin was increased to 875/125 for a further 7 days. She followed up with her PCP today and given more short of breath with abdominal pain not improving she was recommended to come to the ER for further evaluation. She also notes not passing much urine but no other urinary complaints and she puts this down to her reduced oral intake. Her shortness of breath has been over the same period. She has COPD and is prescribed oxygen at home but reports her usual O2 sats 91-93% on room air so she doesn't normally use it. However for the last week with the above illness she has been using her 2LPM O2. She has been compliant with her usual inhalers. Quit smoking 7 years ago. No chest pain. She wears CPAP at night for LESLI. Discharge Exam gen - NAD, resting comfortably in bed neck - no JVD mouth - MMM, no thrush heart - RRR, s1 s2 lungs - mild end-exp wheezes b/l, no increased work of breathing abd - soft NT ND BS+; no peritoneal signs ext - no edema, pulses 2+ b/l Discharge Data Allergies Allergy/AdvReac Type Severity Reaction Status Date / Time No Known Drug Allergies Allergy Verified 09/30/22 09:24 Consultations 09/30/22 14:37 ED Decision to Admit Stat 10/09/22 14:24 Burn CD for patient Stat Ordered Studies 09/30/22 12:22 CT abd pelvis IV con only Stat 10/04/22 14:33 CT Abd and Pelvis [CT abd pelvis wo con] Urgent Hospital Course (1) Diverticulitis: Distal descending colon/sigmoid. Dx initially 09/19/22 at [facility]. Treated with 10 day course of augmentin 500mg tabs. Did not improve. Her augmentin was then increased to 875mg tabs when she wasn't improving. Then presented here on 09/30/22 with ongoing abd pain. Started on zosyn at that time. SLOW progress/slow improvement and in fact had worsening pain 10/03 and 10/04. Repeat CT on 10/04 without abscess, free air, or phlegmon. No worsening of the colitis vs diverticulitis in the descending colon/sigmoid. Made NPO again on 10/04. Clears ultimately resumed again and advanced to full liquids on 10/07. Has tolerated such. Benign abdomen today. Normal labs. Will allow low fiber diet tonight. Re-eval tomorrow. Very odd clinical course as she is nearly 3 weeks into her illness. If not diverticulitis - inflammatory bowel? ischemic colitis? (although never had BRBPR) infectious colitis? other? Check crp in am. Will need follow up colonoscopy as outpatient in 4-6 weeks - will refer back to Dr López, [facility] general surgery. if any worsening overnight then gen surg/GI consultations here. (2) COPD exacerbation: improved/resolved. states breathing is at baseline today. s/p 5day course of zithromax. had IV steroids early in the stay but these were not continued. cont usual inhalers. cont bronchodilators. stable O2 sats on 2 L NC O2. (3) Aortic stenosis: At least moderate, probably severe. Will need ongoing surveillance with cardiology. (4) Obstructive sleep apnea: auto-CPAP HS (pt reports settings of 4-12cm H20) (5) GERD without esophagitis: continue pantoprazole states she is having some ongoing GERD symptoms -- add carafate qid (6) Depression with anxiety: Continue paroxetine and doxepin (7) Iron deficiency anemia: Hb 12.7 in April 2022 slowly trended down over the last few months Fe studies c/w Fe def (transferrin sat 4%, ferritin 64, etc) venofer 200mg IV x 1 today if she tolerates such - repeat venofer tomorrow (probably 300mg then) given the Fe def and h/o recurrent bowel issues - and now #1 - will need w/u (colonoscopy +/- EGD, etc) (8) H/O small bowel obstruction: 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 Presumed diverticulitis of sigmoid colon and a portion of the descending colon - improved 2. Chronic diverticulosis of the colon 3. COPD on home oxygen 4. Iron deficiency anemia - 2 infusions of IV iron given Activity: As commented below Activity Comment: light activities only for now until seen in follow-up Non-emergency contact: Primary Care Provider and Surgeon Call non-emergency contact if: you have any medication questions, your symptoms worsen, your pain is not controlled, your pain is worsening, your pain is unusual for you, your pain is concerning for you and you have a fever Follow-up/Referrals: Britney Veloz DO [Primary Care Provider] - (JENNIFER WILL SEND OFFICE A TEXT STATING PATIENT NEEDS TO BE SEEN EARLY NEXT WEEK FOR AN APPOINTMENT. THE OFFICE WILL CALL THE PATIENT WITH AN APPOINTMENT) Piero López MD [Outside Practitioners] - 10/29/22 2:45 pm Diet: Low Fiber Addtl Attending Provider Instructions: Mrs Arreaga, You were hospitalized due to ongoing diverticulitis of the last portion of your colon. You were treated with IV antibiotics during your entire stay. Two CT scans of the abdomen & pelvis showed that the diverticulitis was in the sigmoid colon as well as a small portion of your descending colon. The sigmoid is one of the most common areas to have diverticulosis/diverticular disease. In 2013 during your last colonoscopy we saw diverticulosis in the sigmoid colon. You gradually improved with diet restriction and the IV antibiotics. We now have you on low fiber diet and you are tolerating this well. We have placed your CT scans on a CD for you to take to your follow-up appointment with Dr López. Generally we recommend a colonoscopy in about 6 weeks. There are times when something else going on in the colon is masquerading as diverticulitis. That is the reason for the colonoscopy - to rule out other causes of your recent illness. Recommendations - 1. Antibiotics x 4 additional days. Start your antibiotics TONIGHT at bedtime. Your antibiotics are - * cefdinir 300mg twice daily x 4 days * metronidazole 500mg three times daily x 4 days * the metronidazole can sometimes cause nausea * the metronidazole also has a funny taste to it 2. Please take a probiotic supplement for 7 days starting today. 3. Low fiber diet - please follow this for a minimum of 10 days. Please see low fiber handout. Avoid fast foods, fried foods, processed foods, certain frozen goods (TV dinners, etc). Focus on good nutrition during your recovery. 4. Please stay well-hydrated during your recovery. 5. Continue your home oxygen as previous. 6. Your urine sample was very clean today. I am sending it for culture to be on the safe side but I anticipate it will not grow anything. If there is bacteria in the urine, however, I will call you and let you know. 7. You have mild urinary retention. This is common in men and women. You do not need a catheter or anything like such at this time. Please practice "timed voids" in which you have a schedule to empty your bladder regularly. Also, at bedtime, consider "double voiding" -- urinate about 10-20 minutes before bedtime, then void once more right before you actually get into bed. This helps empty the bladder more thoroughly for the night. 8. You have developed iron deficiency over the last several months. I gave you 2 runs of IV iron while here. Please ask your family doctor about receiving 1 additional infusion as an outpatient. 9. Please have your CBC blood count and electrolytes rechecked in 5-7 days. These can be done at any [facility] lab. I will place orders for this. Follow-up - see separate section Return to [facility] if - * you have fever over 100 degrees * you have worsening abdominal pain * you have blood in your stools (either bright red or dark/black) * you have nausea/vomiting * you have inability to eat/drink * any other concerns It was our pleasure to care for you! -Dr Leahy Pending Studies at Discharge: Yes Studies:: urine culture Stand-Alone Forms: My [facility], Smoking Cessation Medications and DC Order Prescriptions: New cefdinir 300 mg capsule 300 mg PO BID 4 Days Qty: 8 0RF Rx Instructions: first dose PM of 10/09/22. metronidazole 500 mg tablet 500 mg PO TID 4 Days Qty: 12 0RF Rx Instructions: take first dose PM of 10/09/22. Saccharomyces boulardii 250 mg capsule 250 mg PO DAILY 7 Days Qty: 7 0RF Continued metoprolol succinate 50 mg tablet extended release 24 hr 50 mg PO DAILY Qty: 90 2RF paroxetine HCl 40 mg tablet 40 mg PO DAILY Qty: 90 3RF omeprazole 20 mg capsule,delayed release(DR/EC) 20 mg PO DAILY Qty: 90 1RF alendronate [Fosamax] 70 mg tablet 70 mg PO .WEEKLY Qty: 12 3RF rosuvastatin 10 mg tablet 10 mg PO DAILY Qty: 90 1RF montelukast 10 mg tablet 10 mg PO DAILY Qty: 90 1RF ondansetron 4 mg tablet,disintegrating 4 mg PO Q6H PRN (Reason: Nausea) Patient Comments: prescribed by ER doxepin 25 mg capsule 50 mg PO HS Qty: 180 1RF calcium carb-vitamin D3-vit K2 600 mg-1,000 unit-90 mcg tablet 2 tab PO DAILY albuterol sulfate 90 mcg/actuation HFA aerosol inhaler 2 puff inhalation Q4H PRN (Reason: shortness of breath or wheezing) Qty: 8.5 3RF Rx Instructions: need more refill on rescue inhaler 09/30/22 hydrocodone-acetaminophen 5-325 mg tablet 1 tab PO Q8H PRN (Reason: pain) aspirin [Adult Low Dose Aspirin] 81 mg tablet,delayed release (DR/EC) 81 mg PO DAILY Qty: 30 0RF fish oil-dha-epa 1,200-144-216 mg capsule 1 cap PO DAILY Qty: 30 0RF multivitamin tablet 1 tab PO DAILY Qty: 30 0RF Anoro Ellipta 62.5-25 mcg/actuation blister with device 1 inh INH QAM Discontinued amoxicillin-pot clavulanate 875-125 mg tablet 1 tab PO BID Krames/Other Patient Handouts: Low-Fiber Diet, ED Diverticulitis, ED Diverticulosis Admission Data Admit Date/Time: 10/02/22 12:32 Attending Provider: Anup Leahy Admit Provider: Anup Agustin Primary Care Provider: Britney Veloz Other Providers: Anup Agustin Coding Diagnoses Diverticulitis K57.92 COPD exacerbation J44.1 Aortic stenosis I35.0 Obstructive sleep apnea G47.33 GERD without esophagitis K21.9 Depression with anxiety F41.8 Iron deficiency anemia D50.9 H/O small bowel obstruction Z87.19
[2022-10-10] MEDS ORDERED: PANTOprazole 40 MG TAB PO SCH (09:00)
== END 2022-10-09 17:13 | disposition home or self-care (01) | DRG 391 ==
LOC: ED 10:40 → EDINP 10:40 → SUATTDRO 15:16 → 3W 18:18 → SUATTDRO 10-02 12:32